=== PATIENT | male | born 1950 | race Caucasian/White ===

== ENCOUNTER 2021-06-26 10:46 | Emergency (ER) | payer MEDICARE, OTHER ==
[~2021-06-26] VITALS: Ht 180.3 cm; Wt 64.4 kg
[~2021-06-26 10:46] MED LIST: TAMS.4ER PO
[2021-06-26 12:05] LABS: BASOPHILS ABSOLUTE AUTO 0.04 K/mm3 (0.00-0.23); BASOPHILS PERCENT AUTO 0 % (0-2); EOSINOPHILS ABSOLUTE AUTO 0.08 K/mm3 (0.00-0.68); EOSINOPHILS PERCENT AUTO 1 % (0-6); Hematocrit 34.3 % (37.0-53.0); Hemoglobin 11.5 g/dL (13.5-17.5); IMMATURE GRAN ABSOLUTE AUTO 0.03 K/mm3 (0.00-0.10); IMMATURE GRAN PERCENT AUTO 0 % (0-1); LYMPHOCYTES ABSOLUTE AUTO 0.71 K/mm3 (0.84-5.20); LYMPHOCYTES PERCENT AUTO 8 % (21-46); MONOCYTES ABSOLUTE AUTO 0.71 K/mm3 (0.16-1.47); MONOCYTES PERCENT AUTO 8 % (4-13); Mean Corpuscular HGB 30.2 pg (26.0-34.0); Mean Corpuscular HGB Conc 33.5 g/dL (31.5-36.5); Mean Corpuscular Volume 90 fL (80-100); Mean Platelet Volume 8.5 fL (9.1-12.4); NEUTROPHILS PERCENT AUTO 84 % (41-73); Platelet Count 446 K/mm3 (150-400); RDW Coefficient Variation 14.3 % (11.7-14.2); RDW Standard Deviation 47.1 fL (35.1-46.3); Red Blood Cell Count 3.81 M/mm3 (4.30-5.90); White Blood Cell Count 9.47 K/mm3 (4.00-11.30)
[2021-06-26 12:27] LABS: Alanine Aminotransfer (ALT/SGP 25 U/L (12-78); Albumin/Globulin Ratio 0.9 (0.8-1.8); Alk Phos 55 U/L (50-136); Anion Gap 7 mmol/L (6-16); Aspartate Aminotrans (AST/SGOT 14 U/L (12-37); Bilirubin, Total 0.5 mg/dL (0.1-1.0); Blood Urea Nitrogen 17 mg/dL (8-24); CO2, Blood 26 mmol/L (21-32); Calcium, Blood 9.1 mg/dL (8.5-10.1); Chloride, Blood 105 mmol/L (98-108); Creatinine, Blood 0.85 mg/dL (0.60-1.20); Globulin, Blood 3.3 g/dL (2.2-4.0); Glomerular Filtration Rate >60 (60-); Glucose, Blood 109 mg/dL (70-99); Potassium, Blood 4.2 mmol/L (3.5-5.5); Sodium, Blood 138 mmol/L (136-145); Total Protein, Blood 6.3 g/dL (6.4-8.2); Troponin I <0.015 ng/mL (0.000-0.040)
[2021-06-26 12:28] LABS: Magnesium, Blood 1.8 mg/dL (1.6-2.4); Phosphorus, Blood 2.7 mg/dL (2.5-4.9)
== END 2021-06-26 15:05 | disposition home or self-care (01) ==
LOC: ER 10:46
PROVIDERS: Physician Assistant
DX: T83.011A Breakdown (mechanical) of indwelling urethral catheter, initial encounter (principal); I10 Essential (primary) hypertension; Z79.899 Other long term (current) drug therapy; Y83.8 Other surgical procedures as the cause of abnormal reaction of the patient, or of later complication, without mention of misadventure at the time of the procedure
CPT/HCPCS: 36415; 80053; 83690; 83735; 83880; 84100; 84484; 85025; 93005; 93010; 99283-25

== ENCOUNTER 2021-07-07 16:10 | Inpatient (IN) | payer MEDICARE, OTHER ==
[~2021-07-07] VITALS: Ht 180.3 cm; Wt 86.2 kg
[2021-07-07 17:54] LABS: BASOPHILS ABSOLUTE AUTO 0.08 K/mm3 (0.00-0.23); BASOPHILS PERCENT AUTO 0 % (0-2); EOSINOPHILS PERCENT AUTO 0 % (0-6); Hemoglobin 11.3 g/dL (13.5-17.5); IMMATURE GRAN ABSOLUTE AUTO 1.11 K/mm3 (0.00-0.10); IMMATURE GRAN PERCENT AUTO 4 % (0-1); LYMPHOCYTES PERCENT AUTO 1 % (21-46); MONOCYTES ABSOLUTE AUTO 0.69 K/mm3 (0.16-1.47); MONOCYTES PERCENT AUTO 2 % (4-13); Mean Corpuscular HGB 29.3 pg (26.0-34.0); Mean Corpuscular HGB Conc 35.3 g/dL (31.5-36.5); Mean Corpuscular Volume 83 fL (80-100); Mean Platelet Volume 11.1 fL (9.1-12.4); NEUTROPHILS ABSOLUTE AUTO 26.83 K/mm3 (1.96-9.15); NEUTROPHILS PERCENT AUTO 93 % (41-73); Platelet Count 119 K/mm3 (150-400); RDW Coefficient Variation 15.3 % (11.7-14.2); RDW Standard Deviation 46.5 fL (35.1-46.3); Red Blood Cell Count 3.86 M/mm3 (4.30-5.90); White Blood Cell Count 28.91 K/mm3 (4.00-11.30)
[2021-07-07 18:43] LABS: Alanine Aminotransfer (ALT/SGP 21 U/L (12-78); Albumin, Blood 2.1 g/dL (3.4-5.0); Albumin/Globulin Ratio 0.6 (0.8-1.8); Alk Phos 129 U/L (50-136); Anion Gap 24 mmol/L (6-16); Aspartate Aminotrans (AST/SGOT 7 U/L (12-37); Bilirubin, Total 0.8 mg/dL (0.1-1.0); Blood Urea Nitrogen 291 mg/dL (8-24); Bun/Creatinine Ratio 25.8 (12.0-20.0); CO2, Blood 9 mmol/L (21-32); Calcium, Blood 8.8 mg/dL (8.5-10.1); Chloride, Blood 92 mmol/L (98-108); Ethanol (Alcohol), Blood, Med <3 mg/dL; Globulin, Blood 3.6 g/dL (2.2-4.0); Glomerular Filtration Rate 5 (60-); Glucose, Blood 136 mg/dL (70-99); Potassium, Blood 5.7 mmol/L (3.5-5.5); Sodium, Blood 125 mmol/L (136-145); Total Protein, Blood 5.7 g/dL (6.4-8.2)
[2021-07-07 19:51] LABS: Source, Urine Condom Cath
[2021-07-07 19:58] LABS: Bilirubin, Urine Neg (Neg); Blood, Urine 5+ (Neg); Glucose Qualitative, Urine Neg (Neg); Ketones, Urine Neg (Neg); Leukocyte Esterase, Urine 3+ (Neg); Nitrite, Urine Neg (Neg); Protein, Urine 2+ (Neg); Urobilinogen, Urine NORM (Normal)
[2021-07-07 20:03] LABS: Appearance, Urine Hazy (Clear); Color, Urine Yellow (P-Yellow)
[2021-07-07 20:04] LABS: Bacteria Many /hpf; Red Blood Cells, Urine TNTC /hpf (0-2); Squamous Epithelial Cells Rare /hpf (Few); White Blood Cells, Urine TNTC /hpf (0-5)
[2021-07-07 20:28] LABS: U Amphetamine Screen Not Detected; U Barbituate Screen Not Detected; U Benzodiazapine Screen Not Detected; U Buprenorphine Screen Not Detected; U Cannabinoids Screen Not Detected; U Cocaine Screen Not Detected; U Methadone Screen Not Detected; U Methamphetamine Screen Not Detected; U Opiates Screen Not Detected; U Oxycodone Screen Not Detected; U Phencyclidine Screen Not Detected; U Propoxyphene Screen Not Detected
[2021-07-07 21:00] LABS: Influenza A, PCR NEGATIVE (NEGATIVE); Influenza B, PCR NEGATIVE (NEGATIVE); Resp Syncytial Virus, PCR NEGATIVE (NEGATIVE); SARS-Cov-2 (COVID-19) PCR, MMC NEGATIVE (NEGATIVE)
[2021-07-07 22:53] LABS: Base Excess Venous -19.5 mmol/L; Bicarbonate Venous 11.4 mmol/L (24.0-30.0); PCO2 Venous 22.3 mmHg (38-42); PO2 Venous 183 mmHg (38-42)
[2021-07-07 23:31] LABS: Albumin, Blood 1.9 g/dL (3.4-5.0); Anion Gap 26 mmol/L (6-16); Blood Urea Nitrogen 297 mg/dL (8-24); CO2, Blood 10 mmol/L (21-32); Calcium, Blood 8.5 mg/dL (8.5-10.1); Chloride, Blood 94 mmol/L (98-108); Glomerular Filtration Rate 5 (60-); Glucose, Blood 113 mg/dL (70-99); Phosphorus, Blood 10.2 mg/dL (2.5-4.9); Potassium, Blood 5.2 mmol/L (3.5-5.5); Sodium, Blood 130 mmol/L (136-145)
--- NOTE | 2021-07-08 02:12 | NUR ---
PT ARRIVED ON THE UNIT VIA HOSPITAL BED FROM ED AOX1-2 WITH INCREASED CONFUSION. PT BP WAS LOW AND 500ML BOLUS GIVEN ONCE PT WAS SETTLED IN BED. PT ORIENTED TO ROOM AND CALL LIGHT USE FOR ASSISTANCE. PT WAS NOT ABLE TO ANSWER MOST OF THE ASSESSMENT FOR THEIR ADMISSION BUT COOPERATIVE WITH CARE. PT C/O BEING COLD AND WARM BLANKET, FRESH WATER AND ROOM TEMP INCREASED HELPED THE PT GET SETTLED MORE. PT DENIES ANY OTHER NEEDS AT THE MOMENT WILL CONTINUE TO MONITOR.
--- NOTE | 2021-07-08 04:30 | NUR ---
SHIFT SUMMMARY PT AOX2 AND VERY CONFUSED WITH CHILLS BUT ABLE TO WARM UP TO REST. PT CURRENTLY ASLEEP WITH RISE AND FALL OF CHEST WITH NO S/S OF DISTRESS. PT STATED, "I HAVE BEEN HERE BEFORE AND HOPE THAT MY MEDICATION IS NOT MESSED UP WITH ME NOT BE HOME." PT ASSURED MEDICATIONS WILL BE FIGURED OUT TODAY, WILL CONTINUE TO MONITOR UNTIL REPORT IS GIVEN.
[2021-07-08 04:57] LABS: BASOPHILS ABSOLUTE AUTO 0.06 K/mm3 (0.00-0.23); BASOPHILS PERCENT AUTO 0 % (0-2); EOSINOPHILS PERCENT AUTO 0 % (0-6); Hematocrit 32.9 % (37.0-53.0); Hemoglobin 11.7 g/dL (13.5-17.5); IMMATURE GRAN ABSOLUTE AUTO 0.51 K/mm3 (0.00-0.10); IMMATURE GRAN PERCENT AUTO 2 % (0-1); LYMPHOCYTES ABSOLUTE AUTO 0.23 K/mm3 (0.84-5.20); LYMPHOCYTES PERCENT AUTO 1 % (21-46); MONOCYTES ABSOLUTE AUTO 0.63 K/mm3 (0.16-1.47); MONOCYTES PERCENT AUTO 3 % (4-13); Mean Corpuscular HGB 29.3 pg (26.0-34.0); Mean Corpuscular HGB Conc 35.6 g/dL (31.5-36.5); Mean Corpuscular Volume 83 fL (80-100); NEUTROPHILS ABSOLUTE AUTO 23.84 K/mm3 (1.96-9.15); NEUTROPHILS PERCENT AUTO 94 % (41-73); Platelet Count 138 K/mm3 (150-400); RDW Coefficient Variation 15.2 % (11.7-14.2); RDW Standard Deviation 45.9 fL (35.1-46.3); Red Blood Cell Count 3.99 M/mm3 (4.30-5.90); White Blood Cell Count 25.27 K/mm3 (4.00-11.30)
[2021-07-08 05:46] LABS: Magnesium, Blood 3.1 mg/dL (1.6-2.4)
[2021-07-08 06:11] LABS: Albumin, Blood 1.9 g/dL (3.4-5.0); Albumin/Globulin Ratio 0.6 (0.8-1.8); Bilirubin, Total 0.6 mg/dL (0.1-1.0); Calcium, Blood 8.6 mg/dL (8.5-10.1); Globulin, Blood 3.4 g/dL (2.2-4.0); Phosphorus, Blood 9.8 mg/dL (2.5-4.9); Potassium, Blood 5.1 mmol/L (3.5-5.5); Total Protein, Blood 5.3 g/dL (6.4-8.2)
[2021-07-08 06:13] LABS: Bun/Creatinine Ratio 27.7 (12.0-20.0)
[2021-07-08 06:15] LABS: Creatinine, Blood 10.1 mg/dL (0.60-1.20)
[2021-07-08 14:56] LABS: Bun/Creatinine Ratio 31.1 (12.0-20.0); Calcium, Blood 8.4 mg/dL (8.5-10.1); Creatinine, Blood 8.72 mg/dL (0.60-1.20); Potassium, Blood 4.8 mmol/L (3.5-5.5)
--- NOTE | 2021-07-08 15:32 | NUR ---
SHIFT SUMMARY PT AWAKE AT START OF SHIFT. PT IS A&O, BUT ALSO RAMBLES ON ABOUT NON-RELATING HOME SITUATIONS. PT NOT WANTING FAMILY TO COME AND VISIT. SISTER CALLED TO CK ON PT THIS AM AND LATER BROUGHT DAD TO VISIT WELL, BUT PT DID NOT WANT TO SEE THEM OR TALK TO THEM TODAY. PT UP TO CHAIR AT BS FOR LUNCH, BUT WANTING TO GET BACK INTO BED RIGHT AWAY. MAURICIO TO GRAVITY, DRAINING CL YELLOW TODAY. PER REPORT, SOME CLOTS PRESENT ON ADMIT. PER DR MOORE, MAURICIO CATH CHANGED OUT IN ER WHEN PT CAME IN. RENAL CONSULT CALLED TO DR MCCULLOUGH; NEW ORDERS PLACED. LAB CALLED WITH 2 SETS OF + BCX'S. DR CURTIS COVERING FOR DR RUFFIN WHEN NOTIFIED OF LAB RESULT. NEW ORDERS PLACED. PT RESTING QUIETLY AT THIS TIME. CALL LT IN REACH.
[2021-07-09 05:07] LABS: Hematocrit 30.5 % (37.0-53.0); Hemoglobin 11.2 g/dL (13.5-17.5)
--- NOTE | 2021-07-09 05:12 | NUR ---
SHIFT SUMMARY PT AOX1-2 AT TIMES AND WAS ASLEEP AT THE START OF THIS SHIFT. PT WAS AWAKE PRIOR TO HS MEDS AND RESQUESTED MORE SODA FOR MEDS. PT WAS CONFUSED ABOUT MAURICIO AND PULLED TO HARD CAUSING BLOOD TO COVER THE SHEETS. PT CLEANED AND MAURICIO PLACEMENT CHECKED. THIS NURSE EDUCATED THE PT ON SAFETY WITH CAREFUL TREATMENT OF THE MAURICIO CATH. PT VERBALIZED AND RESTED WITH RISE AND FALL OF CHEST. PT STILL ASLEEP WITHOUT DISTRESS, WILL CONTINUE TO MONITOR UNTIL REPORT IS GIVEN.
[2021-07-09 06:41] LABS: Magnesium, Blood 2.4 mg/dL (1.6-2.4)
[2021-07-09 06:43] LABS: Albumin, Blood 1.6 g/dL (3.4-5.0); Anion Gap 20 mmol/L (6-16); Blood Urea Nitrogen 228 mg/dL (8-24); CO2, Blood 18 mmol/L (21-32); Calcium, Blood 7.7 mg/dL (8.5-10.1); Chloride, Blood 98 mmol/L (98-108); Creatinine, Blood 6.33 mg/dL (0.60-1.20); Glomerular Filtration Rate 9 (60-); Glucose, Blood 156 mg/dL (70-99); Potassium, Blood 3.5 mmol/L (3.5-5.5); Sodium, Blood 136 mmol/L (136-145)
[2021-07-09 07:49] LABS: Phosphorus, Blood 6.6 mg/dL (2.5-4.9)
--- NOTE | 2021-07-09 19:16 | NUR ---
SHIFT SUMMARY PATIENT A&O 1-2. PATIENT UP TO CHAIR FOR MEALS. PATIENT COMPLAINED OF FEELING WEAK AND TIRED WHEN UP IN CHAIR. PATIENT HAS MAURICIO CATHETER PATENT AND DRAINING. PATIENT'S DAD CAME TO VISIT TODAY. AT FIRST PATIENT DID NOT WANT FATHER TO COME UP BUT THEN CHANGED HIS MIND AND AGREED TO HAVE DAD COME VISIT. PATIENT CONFUSED AT TIMES AND WOULD BEGIN RAMBLING ON OFF TOPIC. USES CALL LIGHT APPROPRIATELY. BED ALARM ON WITH BED IN LOW POSITION. WILL CONTINUE TO MONITOR.
--- NOTE | 2021-07-10 04:27 | NUR ---
SHIFT SUMMARY PTIS AAOX2, FORGETFUL AT TIMES. PT IS PLEASANT AND COOPERATIVE WITH CARE. MAURICIO REMAINS PATENT AND DRAINING URINE.VSS REVIEWED. ALL MEDS WER GIVEN PER EMAR. NO COMPLAINT OF PAIN OR SOB. PT IS RESTING COMFORTABLY AT THIS TIME. BED IN LOWER POSITION AND CALL LIGHT IN REACH. WIIL CONTINUE TO MONITOR UNTIL GIVING REPORT TO ONCOMING NURSE.
[2021-07-10 05:19] LABS: BASOPHILS ABSOLUTE AUTO 0.02 K/mm3 (0.00-0.23); BASOPHILS PERCENT AUTO 0 % (0-2); EOSINOPHILS ABSOLUTE AUTO 0.01 K/mm3 (0.00-0.68); EOSINOPHILS PERCENT AUTO 0 % (0-6); Hemoglobin 10.7 g/dL (13.5-17.5); IMMATURE GRAN ABSOLUTE AUTO 0.22 K/mm3 (0.00-0.10); IMMATURE GRAN PERCENT AUTO 2 % (0-1); LYMPHOCYTES PERCENT AUTO 3 % (21-46); MONOCYTES ABSOLUTE AUTO 0.75 K/mm3 (0.16-1.47); MONOCYTES PERCENT AUTO 5 % (4-13); Mean Corpuscular HGB 29.5 pg (26.0-34.0); Mean Corpuscular HGB Conc 35.7 g/dL (31.5-36.5); Mean Corpuscular Volume 83 fL (80-100); Mean Platelet Volume 11.6 fL (9.1-12.4); NEUTROPHILS PERCENT AUTO 90 % (41-73); Platelet Count 186 K/mm3 (150-400); RDW Coefficient Variation 14.4 % (11.7-14.2); RDW Standard Deviation 42.7 fL (35.1-46.3); Red Blood Cell Count 3.63 M/mm3 (4.30-5.90)
[2021-07-10 06:11] LABS: Albumin, Blood 1.7 g/dL (3.4-5.0); Anion Gap 16 mmol/L (6-16); CO2, Blood 27 mmol/L (21-32); Calcium, Blood 7.4 mg/dL (8.5-10.1); Chloride, Blood 96 mmol/L (98-108); Creatinine, Blood 4.18 mg/dL (0.60-1.20); Glomerular Filtration Rate 14 (60-); Glucose, Blood 158 mg/dL (70-99); Magnesium, Blood 1.7 mg/dL (1.6-2.4); Phosphorus, Blood 5.1 mg/dL (2.5-4.9); Potassium, Blood 3.5 mmol/L (3.5-5.5); Sodium, Blood 139 mmol/L (136-145)
[2021-07-10 06:46] LABS: Blood Urea Nitrogen 188 mg/dL (8-24)
--- NOTE | 2021-07-10 18:06 | NUR ---
SHIFT SUMMARY PATIENT A&O BUT RAMBLES ON ABOUT NON-RELATING TOPICS. PATIENT HAS A POOR APPETITE AND IS COMPLAINING OF CONSTIPATION. MEDICATED PER MAR BUT NO BM. MAURICIO CATHETER TO GRAVITY, DRAINING CLEAR YELLOW URINE. PATIENT GETS UP TO CHAIR AND BSC 2PA. WILL CONTINUE TO MONITOR.
[2021-07-11 04:31] LABS: BASOPHILS ABSOLUTE AUTO 0.02 K/mm3 (0.00-0.23); BASOPHILS PERCENT AUTO 0 % (0-2); EOSINOPHILS ABSOLUTE AUTO 0.03 K/mm3 (0.00-0.68); EOSINOPHILS PERCENT AUTO 0 % (0-6); Hematocrit 30.2 % (37.0-53.0); Hemoglobin 10.4 g/dL (13.5-17.5); IMMATURE GRAN PERCENT AUTO 1 % (0-1); LYMPHOCYTES ABSOLUTE AUTO 0.45 K/mm3 (0.84-5.20); LYMPHOCYTES PERCENT AUTO 4 % (21-46); MONOCYTES PERCENT AUTO 7 % (4-13); Mean Corpuscular HGB 29.4 pg (26.0-34.0); Mean Corpuscular HGB Conc 34.4 g/dL (31.5-36.5); Mean Corpuscular Volume 85 fL (80-100); Mean Platelet Volume 10.9 fL (9.1-12.4); NEUTROPHILS ABSOLUTE AUTO 11.26 K/mm3 (1.96-9.15); NEUTROPHILS PERCENT AUTO 88 % (41-73); Platelet Count 259 K/mm3 (150-400); RDW Coefficient Variation 14.7 % (11.7-14.2); RDW Standard Deviation 46.2 fL (35.1-46.3); Red Blood Cell Count 3.54 M/mm3 (4.30-5.90); White Blood Cell Count 12.76 K/mm3 (4.00-11.30)
--- NOTE | 2021-07-11 04:34 | NUR ---
SHIFT SUMMARY NO ACUTE CHANGES TO PT CONDITION AT THIS TIME. NS CONTINUES TO INFUSE AT 75/HR. PT MILDLY CONFUSED WHEN AWAKE, RESTING MUCH OF THE NIGHT. MAURICIO PATENT AND CONTINUES TO DRAIN YELLOW URINE. CALL LIGHT IS WITHIN PT REACH AND WILL CONTINUE TO MONITOR.
--- NOTE | 2021-07-11 04:41 | NUR ---
PT SINUS RHYTHM 78 PER SEPTEMBER STRETCHER HELPER
[2021-07-11 05:29] LABS: Albumin, Blood 1.7 g/dL (3.4-5.0); Anion Gap 7 mmol/L (6-16); Blood Urea Nitrogen 123 mg/dL (8-24); Bun/Creatinine Ratio 45.6 (12.0-20.0); CO2, Blood 32 mmol/L (21-32); Calcium, Blood 7.3 mg/dL (8.5-10.1); Chloride, Blood 104 mmol/L (98-108); Glomerular Filtration Rate 23 (60-); Glucose, Blood 130 mg/dL (70-99); Magnesium, Blood 1.6 mg/dL (1.6-2.4); Phosphorus, Blood 3.9 mg/dL (2.5-4.9); Potassium, Blood 3.4 mmol/L (3.5-5.5); Sodium, Blood 143 mmol/L (136-145)
--- NOTE | 2021-07-11 18:47 | NUR ---
PT PLEASANT TODAY. DID SOME RHYMES WITH ME TODAY. NO NEW COMPLAINTS NOTED. CONTINUES TO BE ON IVF AND WITH MAURICIO. STATES SOME IMPROVEMENT SEEN. CONTINUE FOR A WHILE LONGER. BED IN LOW POSITION, CALLLITE IN REACH, CALLS APPROP
--- NOTE | 2021-07-12 03:53 | NUR ---
CIGAR HEAD PIERCER SUMMARY HAS BEEN RESTING QUIETLY WITH OCCASIOINAL INTERRUPTION REQUESTING PO FLUIDS AND "ICE CREAM". MAURICIO DRAINING, NOTE LARGE AMTS OF INTAKE AND OUT PUT. MSDE ATTEMPT TO HAVE STAFF ASSIST WITH BEDSIDE COMMODE BUT STOPPED BEFORE GETTING OUT OF BED DUE TO VERTIGO. BEDPAN ENCOURAGED FOR SAFETY. CALL LIGHT IN REACH.
[2021-07-12 05:03] LABS: Hematocrit 29.8 % (37.0-53.0); Hemoglobin 9.8 g/dL (13.5-17.5)
[2021-07-12 06:00] LABS: Albumin, Blood 1.7 g/dL (3.4-5.0); Anion Gap 7 mmol/L (6-16); Blood Urea Nitrogen 70 mg/dL (8-24); Bun/Creatinine Ratio 39.3 (12.0-20.0); CO2, Blood 30 mmol/L (21-32); Chloride, Blood 104 mmol/L (98-108); Creatinine, Blood 1.78 mg/dL (0.60-1.20); Glomerular Filtration Rate 38 (60-); Glucose, Blood 118 mg/dL (70-99); Magnesium, Blood 1.3 mg/dL (1.6-2.4); Phosphorus, Blood 2.2 mg/dL (2.5-4.9); Potassium, Blood 3.7 mmol/L (3.5-5.5); Sodium, Blood 141 mmol/L (136-145)
[2021-07-12 07:31] LABS: Osmolality, Serum 314 mos/KG (275-300)
--- NOTE | 2021-07-12 16:58 | NUR ---
SHIFT SUMMARY PT A&O X3 AND IN PLEASENT MOOD, THOUGH DID HAVE PERIODS OF FORGETFULNESS. TALKS TO SELF @ TIMES. TOLERATING PO INTAKE WELL, DENIES N/V. MAURICIO DRAINING TO GRAVITY LIGHT YELLOW URINE. URINE OSMOLALITY 240 PER LAB VIA UA. PT EXERSIZED WHILE LAYING IN BED T/O SHIFT. VISITOR @ BEDSIDE DURING VISITING HOURS. VSS. CALL LIGHT W/IN REACH.
--- NOTE | 2021-07-12 18:59 | NUR ---
DR MCCULLOUGH CALL PT I&O DISCUSSED W/ -- REQUESTED STAT LABS, IN PROGRESS @ THIS TIME. UA COLLECTED FROM MAURICIO CATH TUBE W/ CLAMP AND HAND DELIVERED TO LAB. NS LOWERED TO 50ML/HR.
[2021-07-12 19:00] LABS: Magnesium, Blood 1.7 mg/dL (1.6-2.4)
[2021-07-12 19:22] LABS: Albumin, Blood 1.6 g/dL (3.4-5.0); Anion Gap 6 mmol/L (6-16); Blood Urea Nitrogen 50 mg/dL (8-24); Bun/Creatinine Ratio 34.7 (12.0-20.0); CO2, Blood 29 mmol/L (21-32); Calcium, Blood 7.2 mg/dL (8.5-10.1); Chloride, Blood 104 mmol/L (98-108); Creatinine, Blood 1.44 mg/dL (0.60-1.20); Glomerular Filtration Rate 48 (60-); Glucose, Blood 171 mg/dL (70-99); Phosphorus, Blood 1.8 mg/dL (2.5-4.9); Potassium, Blood 3.6 mmol/L (3.5-5.5); Sodium, Blood 139 mmol/L (136-145)
--- NOTE | 2021-07-12 22:47 | NUR ---
DR MCCULLOUGH CALLED EARLIER, REVIEWED RECENT BLOOD WORK/CHEMISTRY. ORDERED ONE DOSE O SODIUM PHOS 20 MM IV X 1. ORDERS REVIEWED BY PHARMACY
--- NOTE | 2021-07-13 04:48 | NUR ---
GREIGE GOODS MARKER SUMMARY HAS BEEN RESTING QUIETLY WITH FEW INTERRUPTIONS SINCE HS. IVF INFUSING ORDERED. ORDERED A BAG OF NA PHOS AND IT IS INFUSING. MAURICIO DRAINING IVAN. TOLERATING PO FLUIDS. CALL LIGHT IN REACH. NO C/O VOICED. WILL CONTINUE TO MONITOR
[2021-07-13 05:27] LABS: BASOPHILS ABSOLUTE AUTO 0.03 K/mm3 (0.00-0.23); BASOPHILS PERCENT AUTO 0 % (0-2); EOSINOPHILS ABSOLUTE AUTO 0.12 K/mm3 (0.00-0.68); EOSINOPHILS PERCENT AUTO 1 % (0-6); Hematocrit 27.7 % (37.0-53.0); Hemoglobin 9.1 g/dL (13.5-17.5); IMMATURE GRAN ABSOLUTE AUTO 0.07 K/mm3 (0.00-0.10); IMMATURE GRAN PERCENT AUTO 1 % (0-1); LYMPHOCYTES ABSOLUTE AUTO 0.62 K/mm3 (0.84-5.20); LYMPHOCYTES PERCENT AUTO 4 % (21-46); MONOCYTES ABSOLUTE AUTO 0.77 K/mm3 (0.16-1.47); MONOCYTES PERCENT AUTO 5 % (4-13); Mean Corpuscular HGB 29.7 pg (26.0-34.0); Mean Corpuscular HGB Conc 32.9 g/dL (31.5-36.5); Mean Platelet Volume 10.6 fL (9.1-12.4); NEUTROPHILS ABSOLUTE AUTO 13.14 K/mm3 (1.96-9.15); NEUTROPHILS PERCENT AUTO 89 % (41-73); Platelet Count 309 K/mm3 (150-400); RDW Coefficient Variation 15.1 % (11.7-14.2); RDW Standard Deviation 50.3 fL (35.1-46.3); Red Blood Cell Count 3.06 M/mm3 (4.30-5.90); White Blood Cell Count 14.75 K/mm3 (4.00-11.30)
[2021-07-13 05:28] LABS: Mean Corpuscular Volume 91 fL (80-100)
[2021-07-13 06:03] LABS: Albumin, Blood 1.5 g/dL (3.4-5.0); Anion Gap 6 mmol/L (6-16); Blood Urea Nitrogen 39 mg/dL (8-24); Bun/Creatinine Ratio 31.5 (12.0-20.0); CO2, Blood 27 mmol/L (21-32); Calcium, Blood 6.8 mg/dL (8.5-10.1); Chloride, Blood 107 mmol/L (98-108); Creatinine, Blood 1.24 mg/dL (0.60-1.20); Glomerular Filtration Rate 58 (60-); Glucose, Blood 117 mg/dL (70-99); Magnesium, Blood 1.6 mg/dL (1.6-2.4); Phosphorus, Blood 3.4 mg/dL (2.5-4.9); Potassium, Blood 4.3 mmol/L (3.5-5.5); Sodium, Blood 140 mmol/L (136-145)
--- NOTE | 2021-07-13 17:58 | NUR ---
AO X4 AND COOPERATIVE OF CARE. PT CAN SOUND CONFUSED AT TIMES. BUT ANSWERS QUESTIONS APPROPRIATELY. PT HAS BEEN IN BED AND HAD EMESIS START OF SHIFT. PT WAS TREATED PER EMAR AND THIS WAS EFFECTIVE. PT DENIES PAIN AND HAS CALL LIGHT WITHIN REACH. HANG IS WORKIING WELL.
[2021-07-13 21:50] LABS: Albumin, Blood 1.3 g/dL (3.4-5.0); Anion Gap 7 mmol/L (6-16); Blood Urea Nitrogen 34 mg/dL (8-24); Bun/Creatinine Ratio 28.1 (12.0-20.0); CO2, Blood 27 mmol/L (21-32); Calcium, Blood 6.9 mg/dL (8.5-10.1); Chloride, Blood 104 mmol/L (98-108); Creatinine, Blood 1.21 mg/dL (0.60-1.20); Glomerular Filtration Rate 59 (60-); Glucose, Blood 111 mg/dL (70-99); Magnesium, Blood 1.4 mg/dL (1.6-2.4); Phosphorus, Blood 1.8 mg/dL (2.5-4.9); Potassium, Blood 4.3 mmol/L (3.5-5.5); Sodium, Blood 138 mmol/L (136-145)
[2021-07-14 04:51] LABS: Hematocrit 26.5 % (37.0-53.0); Hemoglobin 8.7 g/dL (13.5-17.5)
--- NOTE | 2021-07-14 05:21 | NUR ---
SHIFT SUMMARY A/OX3, FORGETFUL AT TIMES. GRANDIOSE THOUGHTS. MAURICIO PATENT AND DRAINING CLEAR YELLOW URINE. Q1HR OUTPUT RECORDED. NS RUNNING AT 50. BED IN LOWEST POSITION WITH CALL LIGHT IN REACH. WILL CONTINUE TO MONITOR AND REPORT TO ONCOMING RN.
[2021-07-14 06:00] LABS: Albumin, Blood 1.3 g/dL (3.4-5.0); Anion Gap 8 mmol/L (6-16); Blood Urea Nitrogen 29 mg/dL (8-24); Bun/Creatinine Ratio 25.9 (12.0-20.0); CO2, Blood 25 mmol/L (21-32); Calcium, Blood 6.9 mg/dL (8.5-10.1); Chloride, Blood 104 mmol/L (98-108); Creatinine, Blood 1.12 mg/dL (0.60-1.20); Glomerular Filtration Rate >60 (60-); Glucose, Blood 171 mg/dL (70-99); Magnesium, Blood 1.7 mg/dL (1.6-2.4); Phosphorus, Blood 3.6 mg/dL (2.5-4.9); Potassium, Blood 4.1 mmol/L (3.5-5.5); Sodium, Blood 137 mmol/L (136-145)
--- NOTE | 2021-07-14 17:06 | NUR ---
SHIFT SUMMARY PT A&O X4 T/O SHIFT. SBAX1 TO BSC W/ FWW. MRI TODAY AWAITING PENDING RESULTS. TOLERATING PO INTAKE WELL. URINE Q1H CHECK COMPLETE, PLACED IN PT CHART. PT PERFORMING LEG EXERCISES IN BED, C/O PAIN, MEDICATED PER EMAR. VSS. CALL LIGHT W/IN REACH. TELE IN PLACE. BED ALARM ACTIVE.
--- NOTE | 2021-07-15 04:42 | NUR ---
VARNISHING MACHINE OPERATOR SUMMARY PATIENT HAD A FAIR SHIFT. ASSESSMENT WAS DONE AND CHARTED. HIS V/S WERE STABLE. IVF DC'S BY DR. MCCULLOUGH. HIS IV ACCIDENTANLLY PULLED OUT ANAD WAS REPLACED BY THE MOBILE ELECTRONICS INSTALLER. HE DID NOT LODGE ANY FURTHER COMPLAINTS. WILL CONTINUE TO MONITOR HIM.
[2021-07-15 04:46] LABS: Hemoglobin 8.7 g/dL (13.5-17.5)
[2021-07-15 05:07] LABS: Albumin, Blood 1.6 g/dL (3.4-5.0); Anion Gap 5 mmol/L (6-16); Blood Urea Nitrogen 25 mg/dL (8-24); Bun/Creatinine Ratio 25.2 (12.0-20.0); CO2, Blood 26 mmol/L (21-32); Calcium, Blood 7.5 mg/dL (8.5-10.1); Chloride, Blood 106 mmol/L (98-108); Creatinine, Blood 0.99 mg/dL (0.60-1.20); Glomerular Filtration Rate >60 (60-); Glucose, Blood 147 mg/dL (70-99); Magnesium, Blood 1.7 mg/dL (1.6-2.4); Potassium, Blood 3.8 mmol/L (3.5-5.5); Sodium, Blood 137 mmol/L (136-145)
--- NOTE | 2021-07-15 11:50 | NUR ---
Received referral from nurse sub acute care nurse (Luke Lobato) on 07/15/2021. Patient is to discharge 07/15/2021 with orders for home health and elected [facility]. Patient was admitted to [facility] on 07/07/2021 due to acute metabolic encephalopathy. Discussed with patient information on demographic sheet. Patient states he does not have a PCP despite there being a listed PCP on his face sheet. Informed patient of the need to establish care with a PCP who can then make a referral for home health. Patient verbalized understanding. Contacted [facility]) regarding the above. Per office patient has not established care. Discussed with clinic that he will need to establish care and PCP will need to order home health for patient. Clinic verbalized understanding and states that they will reach out to patient later today. Notified bedside RN (Elba Bartlett) and nurse sub acute care nurse of the above. No further interventions Emma Lemus Referral Liaison
[2021-07-15] MEDS ORDERED: DESMOPRESS10 MCG/0.2 (12:05)
[2021-07-15] MEDS ORDERED: VISBIOME 112.51 EACH PO (12:06)
[2021-07-15] MEDS ORDERED: LEVO750 PO (12:08)
[2021-07-15] MEDS ORDERED: MAGNESIUM OXID500 MG PO (12:08)
[2021-07-15] MEDS ORDERED: K-Phos Origina500 MG PO (12:10)
--- NOTE | 2021-07-15 14:25 | NUR ---
DISCHARGE PT A&O X4. PT PROVIDED W/ VERBAL AND WRITTEN INFORMATION. VERBALIZED UNDERSTANDING. PT [facility]SP[facility]. PT IV REMOVED. PT TELE DCED. VSS. LEFT VIA .
== END 2021-07-15 15:05 | disposition home health service (06) | DRG 698 ==
LOC: ER 16:10 → MEDS 22:55
PROVIDERS: Emergency Medicine; Family Medicine; Internal Medicine Nephrology; ADMIT Internal Medicine
DX: T83.511A Infection and inflammatory reaction due to indwelling urethral catheter, initial encounter (principal); G93.41 Metabolic encephalopathy; R65.20 Severe sepsis without septic shock; A41.51 Sepsis due to Escherichia coli [E. coli]; E87.1 Hypo-osmolality and hyponatremia; N17.9 Acute kidney failure, unspecified; E87.2 Acidosis; N25.81 Secondary hyperparathyroidism of renal origin; N39.0 Urinary tract infection, site not specified; K59.00 Constipation, unspecified; Z79.899 Other long term (current) drug therapy; Z20.822 Contact with and (suspected) exposure to COVID-19; Z98.890 Other specified postprocedural states; E87.5 Hyperkalemia; E83.39 Other disorders of phosphorus metabolism; Z53.29 Procedure and treatment not carried out because of patient's decision for other reasons
CPT/HCPCS: 0241U; 36415; 51702; 70551; 74176; 80048; 80053; 80069; 81001; 82803; 83605; 83735; 83930; 83935; 84100; 84520; 84588; 85014; 85018; 85025; 87040; 87077; 87086; 87186; 93005; 93010; 94760; 96365-59; 99285-25; A9270; G0480; J0696; J1644; J1650; J1956; J2597; J3475; J3480; J7030; J7040; J7060; J7070

== ENCOUNTER 2021-08-18 16:34 | Emergency (ER) | payer MEDICARE, OTHER ==
[~2021-08-18] VITALS: Ht 180.3 cm; Wt 70.3 kg
[~2021-08-18 16:34] MED LIST changes: +DESMOPRESS10 MCG/0.2; +K-Phos Origina500 MG PO; +LEVO750 PO; +MAGNESIUM OXID500 MG PO; +VISBIOME 112.51 EACH PO
[2021-08-18 18:08] LABS: Source, Urine Clean Catch
[2021-08-18 18:10] LABS: Bilirubin, Urine Neg (Neg); Blood, Urine 2+ (Neg); Glucose Qualitative, Urine Neg (Neg); Ketones, Urine Neg (Neg); Leukocyte Esterase, Urine 1+ (Neg); Nitrite, Urine Neg (Neg); Protein, Urine 2+ (Neg); Urobilinogen, Urine NORM (Normal)
[2021-08-18 18:22] LABS: Appearance, Urine Hazy (Clear); Color, Urine Pale Yellow (P-Yellow)
[2021-08-18 18:25] LABS: Amorphous Light (0-Heavy); Bacteria Few /hpf; Squamous Epithelial Cells Few /hpf (Few)
[2021-08-18] MEDS ORDERED: Flomax0.4 MG PO (18:53)
== END 2021-08-18 19:18 | disposition home or self-care (01) ==
LOC: ER 16:34
PROVIDERS: Physician Assistant
DX: R33.9 Retention of urine, unspecified (principal); N40.0 Benign prostatic hyperplasia without lower urinary tract symptoms; E11.9 Type 2 diabetes mellitus without complications; Z85.46 Personal history of malignant neoplasm of prostate; Z79.899 Other long term (current) drug therapy
CPT/HCPCS: 51701; 81001; 87077; 87086; 87186; 99283-25

== ENCOUNTER → 2022-03-15 | Outpatient (CLI) | payer MEDICARE, OTHER ==
[~2022-03-15] MED LIST changes: +CEFD300 PO; +Flomax0.4 MG PO; +PHENA200 PO
[2022-03-15 21:30] LABS: Albumin, Blood 3.3 g/dL (3.4-5.0); Anion Gap 8 mmol/L (6-16); Blood Urea Nitrogen 58 mg/dL (8-24); Bun/Creatinine Ratio 14.9 (12.0-20.0); CO2, Blood 22 mmol/L (21-32); Calcium, Blood 9.5 mg/dL (8.5-10.1); Chloride, Blood 103 mmol/L (98-108); Glomerular Filtration Rate 16 (60-); Glucose, Blood 96 mg/dL (70-99); Potassium, Blood 5.7 mmol/L (3.5-5.5); Sodium, Blood 133 mmol/L (136-145)
== END ==
LOC: LAB SHORT 15:02
PROVIDERS: Internal Medicine Nephrology
DX: N18.5 Chronic kidney disease, stage 5 (principal); D63.1 Anemia in chronic kidney disease; R76.9 Abnormal immunological finding in serum, unspecified; R94.5 Abnormal results of liver function studies; G60.9 Hereditary and idiopathic neuropathy, unspecified
CPT/HCPCS: 80069; 85018

== ENCOUNTER 2022-03-22 09:54 | Inpatient (IN) | payer MEDICARE, OTHER ==
[~2022-03-22] VITALS: Ht 180.3 cm; Wt 73.2 kg
[2022-03-22 10:15] LABS: Calcium, Ionized (POC) 1.24 mmol/L (1.10-1.46); Chloride (POC) 100 mmol/L (98-108); Creatinine (POC) 4.6 mg/dL (0.8-1.3); Glucose (ISTAT POC) 137 mg/dL (70-99); Hemoglobin (POC) 12.2 g/dL (13.5-17.5); Potassium (POC) 4.8 mmol/L (3.5-5.5); Sodium (POC) 132 mmol/L (135-148); Total CO2 (POC) 20 mmol/L (21-32)
[2022-03-22 10:30] LABS: BASOPHILS ABSOLUTE AUTO 0.05 K/mm3 (0.00-0.23); BASOPHILS PERCENT AUTO 1 % (0-2); EOSINOPHILS PERCENT AUTO 1 % (0-6); Hematocrit 34.6 % (37.0-53.0); Hemoglobin 10.7 g/dL (13.5-17.5); IMMATURE GRAN ABSOLUTE AUTO 0.01 K/mm3 (0.00-0.10); IMMATURE GRAN PERCENT AUTO 0 % (0-1); LYMPHOCYTES ABSOLUTE AUTO 1.32 K/mm3 (0.84-5.20); LYMPHOCYTES PERCENT AUTO 17 % (21-46); MONOCYTES ABSOLUTE AUTO 0.82 K/mm3 (0.16-1.47); MONOCYTES PERCENT AUTO 10 % (4-13); Mean Corpuscular HGB 25.7 pg (26.0-34.0); Mean Corpuscular HGB Conc 30.9 g/dL (31.5-36.5); Mean Corpuscular Volume 83 fL (80-100); Mean Platelet Volume 8.7 fL (9.1-12.4); NEUTROPHILS PERCENT AUTO 71 % (41-73); Platelet Count 529 K/mm3 (150-400); RDW Coefficient Variation 15.7 % (11.7-14.2); RDW Standard Deviation 47.2 fL (35.1-46.3); Red Blood Cell Count 4.16 M/mm3 (4.30-5.90)
[2022-03-22 10:31] LABS: PCO2 Venous 32.3 mmHg (38-42); pH Blood Venous 7.42 (7.34-7.37)
[2022-03-22 10:32] LABS: Base Excess Venous -3.6 mmol/L
[2022-03-22 10:48] LABS: Albumin/Globulin Ratio 0.6 (0.8-1.8); Bilirubin, Direct 0.1 mg/dL (0.0-0.3); Bilirubin, Indirect 0.3 mg/dL (0.1-0.7); Bilirubin, Total 0.4 mg/dL (0.1-1.0); Bun/Creatinine Ratio 15.5 (12.0-20.0); Calcium, Blood 10.1 mg/dL (8.5-10.1); Creatinine, Blood 4.53 mg/dL (0.60-1.20); Globulin, Blood 4.7 g/dL (2.2-4.0); Magnesium, Blood 1.9 mg/dL (1.6-2.4); Potassium, Blood 4.7 mmol/L (3.5-5.5); Total Protein, Blood 7.7 g/dL (6.4-8.2)
[2022-03-22 10:53] LABS: Source, Urine Clean Catch
[2022-03-22] MEDS ORDERED: TADALAFIL5 M1 PO (10:55)
[2022-03-22] MEDS ORDERED: SODCHL1 PO (10:56)
[2022-03-22 11:00] LABS: Bilirubin, Urine Neg (Neg); Blood, Urine 3+ (Neg); Glucose Qualitative, Urine Neg (Neg); Ketones, Urine Neg (Neg); Leukocyte Esterase, Urine 3+ (Neg); Nitrite, Urine Neg (Neg); Protein, Urine 2+ (Neg); Specific Gravity, Urine 1.005 (1.003-1.022); Urobilinogen, Urine NORM (Normal); pH, Urine 6.5 (5.0-8.0)
[2022-03-22 11:05] LABS: Appearance, Urine Hazy (Clear); Color, Urine Pale Yellow (P-Yellow)
[2022-03-22 11:07] LABS: White Blood Cells, Urine TNTC /hpf (0-5)
[2022-03-22 11:08] LABS: Bacteria Mod /hpf; Squamous Epithelial Cells Rare /hpf (Few)
[2022-03-22 11:11] LABS: U Amphetamine Screen Not Detected; U Barbituate Screen Not Detected; U Benzodiazapine Screen Not Detected; U Buprenorphine Screen Not Detected; U Cannabinoids Screen DETECTED; U Cocaine Screen Not Detected; U Methadone Screen Not Detected; U Methamphetamine Screen Not Detected; U Opiates Screen Not Detected; U Oxycodone Screen Not Detected; U Phencyclidine Screen Not Detected; U Propoxyphene Screen Not Detected
[2022-03-22 11:41] LABS: Influenza A, PCR NEGATIVE (NEGATIVE); Influenza B, PCR NEGATIVE (NEGATIVE); Resp Syncytial Virus, PCR NEGATIVE (NEGATIVE); SARS-Cov-2 (COVID-19) PCR, MMC NEGATIVE (NEGATIVE)
[2022-03-22] MEDS ORDERED: LOKELMA10 GM PO (14:47)
--- NOTE | 2022-03-22 18:25 | NUR ---
SHIFT SUMMARY PT TO THE FLOOR AT 1450 FROM THE ER. PT AMBULATING SBA WITHOUT DIFFICULTY. MAURICIO IN PLACE AND DRAINING ORANGE/RED URINE WITH SOME CLOTS. HE IS REPORTING PAIN TO THE PENIS AND BLADDER AREA POST CATHETERIZATION - NO RELIEF WITH TYLENOL. PT IS ALERT AND ORIENTED X4 BUT HAS SOME TANGENTIAL AND PRESSURED SPEECH AND SOME DIFFICULTY FOLLOWING DIRECTIONS. HE DENIES WEAKNESS, NAUSEA, OR DIZZINESS NOW. HE HAS BEEN SINUS ON THE TELE MONITOR. SATTING >92% ON RA. IV NS INFUSING. NO ACUTE CONCERNS AT THIS TIME. NO CHEST PAIN.
[2022-03-23 05:02] LABS: BASOPHILS ABSOLUTE AUTO 0.03 K/mm3 (0.00-0.23); BASOPHILS PERCENT AUTO 0 % (0-2); EOSINOPHILS ABSOLUTE AUTO 0.04 K/mm3 (0.00-0.68); EOSINOPHILS PERCENT AUTO 0 % (0-6); Hematocrit 34.9 % (37.0-53.0); Hemoglobin 11.2 g/dL (13.5-17.5); IMMATURE GRAN ABSOLUTE AUTO 0.02 K/mm3 (0.00-0.10); IMMATURE GRAN PERCENT AUTO 0 % (0-1); LYMPHOCYTES PERCENT AUTO 10 % (21-46); MONOCYTES ABSOLUTE AUTO 0.78 K/mm3 (0.16-1.47); MONOCYTES PERCENT AUTO 8 % (4-13); Mean Corpuscular HGB 26.5 pg (26.0-34.0); Mean Corpuscular HGB Conc 32.1 g/dL (31.5-36.5); Mean Corpuscular Volume 83 fL (80-100); Mean Platelet Volume 8.6 fL (9.1-12.4); NEUTROPHILS ABSOLUTE AUTO 7.76 K/mm3 (1.96-9.15); NEUTROPHILS PERCENT AUTO 81 % (41-73); Platelet Count 462 K/mm3 (150-400); RDW Coefficient Variation 15.7 % (11.7-14.2); RDW Standard Deviation 47.1 fL (35.1-46.3); Red Blood Cell Count 4.23 M/mm3 (4.30-5.90); White Blood Cell Count 9.63 K/mm3 (4.00-11.30)
[2022-03-23 05:17] LABS: Albumin, Blood 2.6 g/dL (3.4-5.0); Anion Gap 8 mmol/L (6-16); Blood Urea Nitrogen 71 mg/dL (8-24); Bun/Creatinine Ratio 15.3 (12.0-20.0); CO2, Blood 23 mmol/L (21-32); Calcium, Blood 9.5 mg/dL (8.5-10.1); Chloride, Blood 105 mmol/L (98-108); Creatinine, Blood 4.63 mg/dL (0.60-1.20); Glomerular Filtration Rate 13 (60-); Glucose, Blood 106 mg/dL (70-99); Magnesium, Blood 2.4 mg/dL (1.6-2.4); Phosphorus, Blood 4.1 mg/dL (2.5-4.9); Potassium, Blood 4.6 mmol/L (3.5-5.5); Sodium, Blood 136 mmol/L (136-145)
--- NOTE | 2022-03-23 05:20 | NUR ---
Assumed care of pt at 1900. A/Ox4, anxious and talkative. Reports bladder spasm pain related to the catheter. Rechecked placement of catheter and statlock, gave medication and applied Kpad for comfort. Patient reports relief and was able to sleep for a few hours. Maintains over 95% on RA. LS clear on top and dim at bases. SR on tele 90's, denies any CP/pressure, BP stable. Strong +2 pulses t/o. Reports constipation, hypoactive bowel tones x4, PO medications. Temp joseph draining to gravity red urine with clots that towards the end of shift shifted to light suhail urine. Slight splitting noted at urethral opening, cath care done. Small scabbing noted t/o. Will report to dayshift RN.
--- NOTE | 2022-03-23 09:54 | NUR ---
ASSUMPTION OF CARE THIS RN ASSUMED CARE OF PATIENT AT 0700. REPORT TAKEN FROM ELVIS ROSENBERG. PATIENT'S VITALS STABLE AT THIS TIME. BLADDER SPASM PAIN NOTED; MEDICATING PER EMAR. THIS RN OFFERED TO CHANGE OUT TEMP MAURICIO FOR COUDE TO ENSURE PROPER PLACEMENT BUT PATIENT REFUSED AT THIS TIME. RED URINE WITH SEDIMENT/CLOTS NOTED. NS RUNNING AT 75MLS/HR. PATIENT INDEPENDENT TO BSC. CALLS APPROPRIATELY. BED IN LOWEST POSITION AND CALL LIGHT WITHIN REACH.
--- NOTE | 2022-03-23 17:52 | NUR ---
SHIFT SUMMARY PATIENT ALERT AND ORIENTED X4. PATIENT IS TALKATIVE AND TANGENTIAL. PATIENT CONTINUES TO HAVE BLADDER SPASM PAIN REGULARLY DURING THIS SHIFT. PATIENT STATES IT IS 4-5/10 ALL THE TIME AND WHEN THE SPASM IS SEVERE IT IS 10/10 PAIN. MEDICATING PER EMAR. THIS RN CHANGED TEMP MAURICIO TO 16FR COUDE. BRIEF RELIEF FELT BY PRN 50 MCG IV FENTANYL. PATIENT USING HEAT AND POSITIONAL INTERVENTIONS FOR PAIN. PATINET COMPLAINS OF CONSTIPATION; MEDICATING PER EMAR WITH NO RESULTS YET THIS SHIFT; PATIENT STATES "IT'S CLOSE". PATIENT INDEPENDENT TO BSC. CALLS APPROPRIATELY. BED IN LOWEST POSITION AND CALL LIGHT WITHIN REACH. WILL CONTINUE TO MONITOR UNTIL SHIFT CHANGE AT 1900.
--- NOTE | 2022-03-24 05:58 | NUR ---
Patient slept for a few hours at a time. A/Ox4. Still c/o bladder spasm pain of 10/10 intensity. Kpad and medications per emar allowed pt to sleep. Santos draining to gravity bloody urine with clots. Order for intermittent cath irrigation obtained, after irrigating, much more urine came out. Patient managed to have small BM this shift. VSS. No acute changes. Will report to dayshift RN.
[2022-03-24 06:23] LABS: Hemoglobin 10.5 g/dL (13.5-17.5)
[2022-03-24 06:45] LABS: Albumin, Blood 2.6 g/dL (3.4-5.0); Anion Gap 10 mmol/L (6-16); Blood Urea Nitrogen 64 mg/dL (8-24); Bun/Creatinine Ratio 14.1 (12.0-20.0); CO2, Blood 20 mmol/L (21-32); Chloride, Blood 108 mmol/L (98-108); Creatinine, Blood 4.53 mg/dL (0.60-1.20); Glomerular Filtration Rate 13 (60-); Glucose, Blood 99 mg/dL (70-99); Magnesium, Blood 2.1 mg/dL (1.6-2.4); Phosphorus, Blood 3.6 mg/dL (2.5-4.9); Potassium, Blood 4.6 mmol/L (3.5-5.5); Sodium, Blood 138 mmol/L (136-145)
[2022-03-24 15:29] LABS: Bun/Creatinine Ratio 13.9 (12.0-20.0); Calcium, Blood 9.1 mg/dL (8.5-10.1); Creatinine, Blood 4.54 mg/dL (0.60-1.20); Potassium, Blood 4.7 mmol/L (3.5-5.5)
--- NOTE | 2022-03-24 17:58 | NUR ---
SHIFT SUMMARY PATIENT CONTINUES TO HAVE TANGENTIAL SPEECH WITH NOTED FORGETFULNESS, BUT ANSWERS QUESTIONS APPROPRIATELY. INCREASED CLOTS NOTED IN CATHETER; URINE CONTINUES TO BE BRIGHT RED IN COLOR WITH TISSUE/CLOTS. PATIENT NEEDING TO HAVE CATHETER IRRIGATED WITH STERILE WATER Q3-4HRS DURING THIS SHIFT BY THIS RN DUE TO CLOGGING CATHETER AND LEAKING. PATIENT CONTINUES TO HAVE SPASMS BUT STATES THAT THEY HAVE DECREASED TODAY. WHEN THE SPASMS OCCUR THE PT STATES THEY ARE 10/10. PATIENT CONTINUES TO BE INEPENDENT TO BSC. SHOWER GIVEN TO PATIENT THIS AM. CALLING APPROPRIATELY. NS RUNNING AT 150MLS/HR. BED IN LOWEST POSITION AND CALL LIGHT WITHIN REACH.
[2022-03-25 04:14] LABS: Hemoglobin 9.7 g/dL (13.5-17.5)
[2022-03-25 04:45] LABS: Albumin, Blood 2.3 g/dL (3.4-5.0); Anion Gap 8 mmol/L (6-16); Blood Urea Nitrogen 59 mg/dL (8-24); Bun/Creatinine Ratio 13.3 (12.0-20.0); CO2, Blood 20 mmol/L (21-32); Calcium, Blood 8.2 mg/dL (8.5-10.1); Chloride, Blood 108 mmol/L (98-108); Creatinine, Blood 4.44 mg/dL (0.60-1.20); Glomerular Filtration Rate 13 (60-); Glucose, Blood 93 mg/dL (70-99); Phosphorus, Blood 3.3 mg/dL (2.5-4.9); Potassium, Blood 4.4 mmol/L (3.5-5.5); Sodium, Blood 136 mmol/L (136-145)
--- NOTE | 2022-03-25 05:27 | NUR ---
SHIFT SUMMARY NO ACUTE CHANGES THIS SHIFT. PT ALERT, VSS. C/O OF BLADDER SPASMS X1, MEDICATED W/ TYLENOL FOR PAIN W/ SUCCESSFUL RELIEF. MAURICIO CATHETER DRAINING RED URINE W/ SMALL CLOTS TO GRAVITY. NO IRRIGATION NEEDED THIS SHIFT. SMALL PELLET LIKE BM THIS SHIFT. FLUIDS INFUSED PER EMAR. PT STATED HE GOT SUCH GOOD SLEEP AFTER MIDNIGHT. CALL LIGHT IN REACH.
--- NOTE | 2022-03-25 17:11 | NUR ---
TRANSFER OF CARE NOTE PT HAS BEEN INDEPENDENT IN HIS ROOM, USING THE BEDSIDE COMMODE. HE HAS COMPLAINED OF 7/10 PAIN IN HIS BLADDER. HIS CATHETER IS STILL DRAINING BRIGHT RED URINE. HAS BEEN IRRIGATED TODAY PER MD ORDER. PTS CONSTIPATION HAS BEEN RELIEVED AND HE HAS A LARGE SOFT BM THIS AFTERNOON. BED IN LOWEST POSITION AND CALL LIGHT IN REACH
--- NOTE | 2022-03-26 04:13 | NUR ---
SHIFT SUMMARY 72 YR M ADMITTED ON 03/22/22 FOR LUIS/UTI. FULL CODE. PT C/O PAIN AT A LEVEL OF 7-10/10. HE SAT ON THE BSC FOR A GOOD PORTION OF THE SHIFT AND STATED THAT HE WAS MOST COMFORTABLE THERE. MAURICIO IS STILL DRAINING RED BLOOD AND THERE WERE A FEW SMALL BLOOD CLOTS. HE WOULD LIKE TO TALK TO DOC IN THE A.M. CONCERNING HIS MEDS FOR BLADDER SPASMS. HE STATES THAT HE WAS TOLD THE DOSE WOULD CHANGE FROM 3XD TO 4XD AND IT DID NOT.
[2022-03-26 05:25] LABS: Hematocrit 31.9 % (37.0-53.0); Hemoglobin 9.7 g/dL (13.5-17.5)
[2022-03-26 05:53] LABS: Albumin, Blood 2.2 g/dL (3.4-5.0); Anion Gap 8 mmol/L (6-16); Blood Urea Nitrogen 52 mg/dL (8-24); CO2, Blood 19 mmol/L (21-32); Chloride, Blood 103 mmol/L (98-108); Creatinine, Blood 4.72 mg/dL (0.60-1.20); Glomerular Filtration Rate 13 (60-); Glucose, Blood 95 mg/dL (70-99); Magnesium, Blood 1.7 mg/dL (1.6-2.4); Phosphorus, Blood 3.3 mg/dL (2.5-4.9); Potassium, Blood 4.4 mmol/L (3.5-5.5); Sodium, Blood 130 mmol/L (136-145)
[2022-03-26 09:21] LABS: Source, Urine Foley catheter
[2022-03-26 09:34] LABS: Bilirubin, Urine Neg (Neg); Blood, Urine 5+ (Neg); Glucose Qualitative, Urine Neg (Neg); Ketones, Urine Neg (Neg); Leukocyte Esterase, Urine 3+ (Neg); Nitrite, Urine Neg (Neg); Protein, Urine 3+ (Neg); Urobilinogen, Urine NORM (Normal); pH, Urine 6.5 (5.0-8.0)
[2022-03-26 09:42] LABS: Appearance, Urine Hazy (Clear); Bacteria Rare /hpf; Color, Urine Red (P-Yellow); Red Blood Cells, Urine TNTC /hpf (0-2); Squamous Epithelial Cells Not Seen /hpf (Few)
--- NOTE | 2022-03-26 18:20 | NUR ---
SHIFT SUMMARY: PERSISTENT HEMATURIA WITH SOME CLOTS, DID NOT NEED TO IRRIGATE CATHETER AT ALL TODAY. HAVING BLADDER SPASMS; BENTYL CHANGED FROM TID TO QID. NO EVENTS ON TELE, SR 70'S. GAVE SUPPOSITORY TO PROMOTE BM, HAD GOOD EFFECT. INDEPENDENT IN ROOM. PT'S FATHER VISITED TODAY, TOLD THIS AUTHOR THAT PATIENT WOULD NEED TO BE INDEPENDENT WITH HIS CARE HE AND HIS ARE IN THEIR LATE 80'S/EARLY 90'S AND CANNOT TAKE CARE OF HIM. PT INQUIRED ABOUT ASSISTED LIVING TO THIS AUTHOR, ACKNOWLEDGED THAT HE NEEDS MORE HELP THAN HIS PARENTS CAN GIVE.
--- NOTE | 2022-03-26 20:33 | NUR ---
ASSUMED CARE. AOX3, MILD FORGETFULNESS AT TIMES. FOLLOWS DIRECTIONS. KNEES WERE BENT TO CHEST WHEN ENTERING THE ROOM, GRUNNTING EVERY NOW AND THEN. STATES THE SPASMS HURT. MAURICIO WITH LITTLE URINE IN IT. BED SOAKED IN URINE, PATIENT C/O BEING COLD AND WET. MAURICIO TWISTED IN STAT LOCK PREVENTING FLOW. WHEN RELEASED, LARGE AMOUNT OF URINE FLOODED OUT, CAUSING SEVERE SPASMS AND HIM YELLOWING SOME. GOT SPASMS UNDER CONTROL, OUTPUT WAS OVER 500 OF RED TINGED URINE, SEVERAL SMALL BLOOD CLOTS FLOWED OUT. PATIENT GIVEN PARTIAL BATH, LINEN CHANGE COMPLETED. BICARB INFUSING. MEDICATED WITH PM MEDS. NEW STAT LOCK PLACED. DISCUSSED WITH PATIENT TO MONITOR MAURICIO TO MAKE SURE IT IS FLOWING ALL THE TIME. WILL MONITOR, CALL LIGHT IN REACH.
--- NOTE | 2022-03-26 22:00 | NUR ---
PT UP TO BSC, STATES HE WAS FEELING LIKE HE WAS CRAMPING, STATES SOMETIMES IF HE HAS A BM IT HELPS RELEIVE THE SPASMS. MAURICIO STILL PATENT AND DRIAING RED TINGE URINE, CONT. TO HAVE BLOOD CLOTS SMALL. MEDICATED WITH TYLENOL FOR PAIN. NO BM NOTED YET.
[2022-03-27 04:53] LABS: Hematocrit 31.9 % (37.0-53.0)
[2022-03-27 05:11] LABS: Anion Gap 9 mmol/L (6-16); Blood Urea Nitrogen 51 mg/dL (8-24); Bun/Creatinine Ratio 10.9 (12.0-20.0); CO2, Blood 20 mmol/L (21-32); Calcium, Blood 7.7 mg/dL (8.5-10.1); Chloride, Blood 98 mmol/L (98-108); Creatinine, Blood 4.67 mg/dL (0.60-1.20); Glomerular Filtration Rate 13 (60-); Glucose, Blood 93 mg/dL (70-99); Magnesium, Blood 1.7 mg/dL (1.6-2.4); Phosphorus, Blood 3.2 mg/dL (2.5-4.9); Potassium, Blood 4.3 mmol/L (3.5-5.5); Sodium, Blood 127 mmol/L (136-145)
--- NOTE | 2022-03-27 05:44 | NUR ---
SHIFT SUMMARY: AOX3, FORGETFUL AT TIMES, ABLE TO MAKE NEEDS KNOWN. MAURICIO WITH RED TINGED URINE, OUTPUT 1825. TOTAL INTAKE WAS 2671. URINE CONTINUES TO HAVE SMALL BLOOD CLOTS THAT DO PASS VIA CATH. NO IRRIGATON WAS INDICATED TONIGHT. PT CONTINUES TO HAVE BLADDER SPASMS OFF AND ON. FENT GIVEN X1 AND TYELNOL GIVEN X2. KIDNEY FUNCTION UNCHANGED EXCEPT DROP IN NA+ TO 127 [address] CA TO 7.7. DR. MCCULLOUGH NOTIFIED, STAT IONIZED CA ORDERED. WILL CALL WITH RESULTS. ABLE TO GET UP TO BSC INDEPENDENTLY. CALL LIGHT REMAINS IN REACH.
--- NOTE | 2022-03-27 06:14 | NUR ---
IONIZED CA RESULTS CALLED TO DR. MCCULLOUGH. ORDER FOR CALCIUM GLUCONATE ORDERED.
--- NOTE | 2022-03-27 08:00 | NUR ---
pt laying in bed awake a/ox3, pleasant and cooperative with care, follows commands well, denies pain, states he feels pretty good today, in good spirits, lungs are clear t/o, resp even and unlabored, no cough noted, hrr, tele in place running sr per monitor, see strip, no edema noted, ppp+1, cap refill <3sec, vs stable, afebrile, iv sites are clear and patent, btx4, abd flat soft nontender, voids via joseph cath draining watermelon colored urine, skin c/w/d, skin c/w/d, norma, indep in room, can make his needs known, call light in reach.
--- NOTE | 2022-03-27 19:19 | NUR ---
pt has been up indep in room, having pain in bladder area, medicated with fentanyl once, no further changes this shift. call light in reach.
[2022-03-28 04:50] LABS: BASOPHILS ABSOLUTE AUTO 0.06 K/mm3 (0.00-0.23); BASOPHILS PERCENT AUTO 1 % (0-2); EOSINOPHILS ABSOLUTE AUTO 0.28 K/mm3 (0.00-0.68); EOSINOPHILS PERCENT AUTO 5 % (0-6); Hematocrit 32.9 % (37.0-53.0); Hemoglobin 10.4 g/dL (13.5-17.5); IMMATURE GRAN ABSOLUTE AUTO 0.02 K/mm3 (0.00-0.10); IMMATURE GRAN PERCENT AUTO 0 % (0-1); LYMPHOCYTES ABSOLUTE AUTO 1.09 K/mm3 (0.84-5.20); LYMPHOCYTES PERCENT AUTO 20 % (21-46); MONOCYTES ABSOLUTE AUTO 0.69 K/mm3 (0.16-1.47); MONOCYTES PERCENT AUTO 13 % (4-13); Mean Corpuscular HGB 25.6 pg (26.0-34.0); Mean Corpuscular HGB Conc 31.6 g/dL (31.5-36.5); Mean Corpuscular Volume 81 fL (80-100); Mean Platelet Volume 8.6 fL (9.1-12.4); NEUTROPHILS ABSOLUTE AUTO 3.28 K/mm3 (1.96-9.15); NEUTROPHILS PERCENT AUTO 61 % (41-73); Platelet Count 495 K/mm3 (150-400); RDW Coefficient Variation 15.4 % (11.7-14.2); RDW Standard Deviation 44.7 fL (35.1-46.3); Red Blood Cell Count 4.07 M/mm3 (4.30-5.90); White Blood Cell Count 5.42 K/mm3 (4.00-11.30)
[2022-03-28 05:07] LABS: Albumin, Blood 2.1 g/dL (3.4-5.0); Anion Gap 9 mmol/L (6-16); Blood Urea Nitrogen 48 mg/dL (8-24); Bun/Creatinine Ratio 10.4 (12.0-20.0); CO2, Blood 24 mmol/L (21-32); Calcium, Blood 8.3 mg/dL (8.5-10.1); Chloride, Blood 90 mmol/L (98-108); Creatinine, Blood 4.62 mg/dL (0.60-1.20); Glomerular Filtration Rate 13 (60-); Glucose, Blood 90 mg/dL (70-99); Magnesium, Blood 1.7 mg/dL (1.6-2.4); Phosphorus, Blood 3.5 mg/dL (2.5-4.9); Potassium, Blood 4.1 mmol/L (3.5-5.5); Sodium, Blood 123 mmol/L (136-145)
--- NOTE | 2022-03-28 06:45 | NUR ---
NOC SHIFT SUMMARY PT ADMITTED WITH HEMATURIA AND BLADDER SPASMS. MAURICIO IN SITU DRAINING RED/PINK URINE WITH INTERMITTENT CLOTS. SPASMS DIFFICULT TO KEEP UNDER CONTROL, BENTYL ALONE INEFFECTIVE. ADDITION OF FENTANYL PROVIDED SLIGHT IMPROVMENT. BELLADONNA SUPPOSITORIES ADDED OVERNIGHT. COMBINATION OF ALL SEEM TO BE EFFECTIVE. PT HAPPY WITH ADJUSTMENTS TO MEDS. NO OTHER ISSUES OVERNIGHT.
--- NOTE | 2022-03-28 15:59 | NUR ---
IRRIGATED BLADDER PER ORDERS. PT TOLERATED WELL
--- NOTE | 2022-03-28 16:41 | NUR ---
NOTIFIED BY TELE PT APPEARED TO HAVE 15 BEAT RUN VTACH UPON TALKING TO PT, PT REPORTED SEVERE BLADDER PAIN, RATING 9/10 AND WAS BOUNCING LEGS VIGOROUSLY ON BED. MEDICATED PER ORDERS FOR PAIN W/FENTANYL. NOTIFIED DR ARREOLA.
--- NOTE | 2022-03-28 17:37 | NUR ---
PT TO CT. NOTIFIED TELE
--- NOTE | 2022-03-28 18:33 | NUR ---
SUMMARY PT STABLE. HAD AN EPISODE OF 15 BEAT RUN OF VTACH PER TELE. UPON ENTERING ROOM, FOUND PT BOUNCING LEGS VIGOROUSLY AND STATED HE WAS IN 9/10 BLADDER PAIN. MEDICATED PER ORDERS W/FENTANYL, WHICH BROUGHT PAIN DOWN TO 1/10. REPORTED TO DR ARREOLA. PT CONTINUES TO HAVE CRANBERRY COLORED URINE TO MAURICIO BAG. IRRIGATED THIS AFTERNOON PER ORDERS. PT PLEASANT AND COOPERATIVE. CALL LIGHT IN REACH.
[2022-03-29 05:18] LABS: Hematocrit 32.2 % (37.0-53.0); Hemoglobin 10.3 g/dL (13.5-17.5)
[2022-03-29 05:55] LABS: Albumin, Blood 2.1 g/dL (3.4-5.0); Anion Gap 10 mmol/L (6-16); Blood Urea Nitrogen 50 mg/dL (8-24); Bun/Creatinine Ratio 9.6 (12.0-20.0); CO2, Blood 23 mmol/L (21-32); Calcium, Blood 8.6 mg/dL (8.5-10.1); Chloride, Blood 93 mmol/L (98-108); Glomerular Filtration Rate 11 (60-); Glucose, Blood 102 mg/dL (70-99); Magnesium, Blood 1.7 mg/dL (1.6-2.4); Phosphorus, Blood 5.2 mg/dL (2.5-4.9); Potassium, Blood 4.6 mmol/L (3.5-5.5); Sodium, Blood 126 mmol/L (136-145); Uric Acid, Blood 7.8 mg/dL (3.5-7.2)
--- NOTE | 2022-03-29 06:47 | NUR ---
NOC SHIFT SUMMARY HEMATURIA CLEARING; LAST OUTPUT WAS LIGHT PINK AND CLEAR. HOWEVER, SEVERAL ISSUES AROSE THROUGHOUT THE SHIFT. THIS RN REQUESTED SEVERAL TIMES TO CALL FOR ASSISTANCE WHEN GETTING OOB AFTER WITNESSING 1ST HAND THE MANY SAFETY HAZARDS THAT WERE PREVELANT. THE TUBE CAUSED A TRIPPING JEWEL, WHICH THE PATIENT ATTEMPTED TO AVOID BY REPEATEDLY STEPPING BACK AND FORTH (WHICH MADE NO DIFFERENCE, MANY KINKS WERE CREATED). AT ONE POINT, THE PT'S MAURICIO STOPPED DRAINING, WHICH CORRELATED TO A SPIKE IN THE PT'S HR TO THE 140'S. A BLADDER SCAN SHOWED 570 mL. CHARGE NURSE VIRIDIANA VIGOROUSLY FLUSHED THE CATHETER UNTIL URINE BEGAN DRAINING. PAIN WAS ALSO AN ISSUE, BUT WAS EVENTUALLLY CONTROLLED. NO OTHER ISSUES NOTED OVERNIGHT.
[2022-03-29 07:26] LABS: Free Thyroxine 1.16 ng/dL (0.70-1.60); Triiodothyronine, Free 1.67 pg/mL (2.18-3.98)
--- NOTE | 2022-03-29 08:00 | NUR ---
pt laying in bed with heating pad to low abd, states he's having spasms intermintantly, pain gets up to a 10/10, a/ox3, pleasant and cooperative with care, follows commands well, lungs are clear t/o, resp even and unlabored, no cough noted, on r/a, resp even and unlabored, hrr, tele in place, running sr per monitor, see strip, no edema noted, ppp+1, cap refill <3sec, v.s. stable, afebrile, iv site is clear and patent, btx4, abd flat soft nontender, voids via joseph, clear pink urine, skin c/w/d, maew, bea, call light in reach.
[2022-03-29 11:22] LABS: Creatinine, Blood 5.41 mg/dL (0.60-1.20)
--- NOTE | 2022-03-29 18:35 | NUR ---
pt had iv's go bad and new one placed, did medicate him for pain as he is continuing to have bladder spasms, consult was called in for Dr. Stacy for perma cath placement, call light in reach.
--- NOTE | 2022-03-30 00:10 | NUR ---
PT WAS HAVING EXCRUTIATING BLADDER SPASMS THAT WERE REPORTED GETTING WORSE AND MORE FREQUENT AND UNRELIEVED BY PRN FENTANYL, TYLENOL, TRAMADOL AND SCHEDULED BENTYL. STAFF OBSERVED MAURICIO W/VERY LITTLE NEW URINARY OUTPUT. THIS RN ATTEMPTED TO FLUSH MAURICIO TO ENSURE PATENCY AND WAS UNABLE TO EXPEL FLUSH THAT WAS ADMINISTERED. NO CLOTS OR UO OBTAINED DESPITE REPOSITIONING MAURICIO CATH. PT SAT AT EOB AND WAS UP TO BSC D/T PAIN LESS WHEN SITTING UPRIGHT. NEITHER GRAVITY OR MOBILITY SEEMED TO AID REGAIN PATENCY. BLADDER SCAN SHOWED >400 MLS RETAINED W/MAURICIO IN PLASE THAT WAS NO LONGER DRAINING. MADE AWARE W/CONT CONT BLADDER IRRIGATION ORDERED PRN AND LIDOCAINE UROJET AND DILUADID IV X1 RX'D FOR NEW 3-WAY MAURICIO INSERTION IF NEEDED.
--- NOTE | 2022-03-30 01:08 | NUR ---
THIS RN WAS PLANNING TO PLACE 3 WAY MAURICIO CATHETER AND COMMENCE CONT BLADDER IRRIGATION PRN TO MAINTAIN PATENCY BUT WHEN STAFF DEFLATED BALLOON AND BEGAN PROCEDURE TO REMOVE EXISTING CATHETER, BRIGHT RED URINE BEGAN FLOWING AGAIN. PT HAD JUST ATTEMPTED TO USE BSC FOR BM AND HAD STRAINED SOME W/O ANY SUCCESS BUT PERHAPS THIS AIDED IN REGAINING PATENCY. STAFF ADVANCED CATH FURTHER AND REINFLATED BALLOON FOR LARGE AMT OF BLOODY URINARY OUTPUT. PREVIOUS ATTEMPTS AT THIS FELT IF CATHETER TIP WAS HITTING SOME SORT OF BLOCKAGE THAT NO LONGER COULD BE FELT. APPROXIMATELY 700+ MLS BLOODY URINE OUTPUT W/SEVERAL LARGE CLOTS OBSERVED FLOWING TO BAG. REPEAT BLADDER SCAN SHOWED ONLY 18-34 MLS. MAURICIO REMAINS PATENT AT THIS TIME AND SPASMS ARE MUCH IMPROVED. CATH REPLACEMENT IS NOT NEEDED AT PRESENT BUT ORDER REMAINS ACTIVE IF CATH IS NO LONGER PATENT ONCE AGAIN. WILL MONITOR CLOSELY AND MEDICATE FOR PAIN PRN.
--- NOTE | 2022-03-30 02:25 | NUR ---
MAURICIO REMAINS PATENT AND DRAINING BLOOD TINGED URINE W/OCCASIONAL CLOTS. URINE APPEARANCE IS LESS BLOODY AT PRESENT. PT SLEEPING W/O S/S DISTRESS OR CONTINUED BLADDER SPASMS.
--- NOTE | 2022-03-30 03:40 | NUR ---
SUMMARY: PT A/OX4, CALLS APPROPRIATELY TO SPECIFY NEEDS AND IS PLEASANT AND COOEPRATIVE W/CARE. HE BEGAN SHIFT PAINFUL W/BLADDER SPASMS THAT WORSENED DESPITE RECIEVING PRN TYLENOL, FENTANYL, TRAMADOL AND SCHEDULED BENTYL. MAURICIO WAS INITIALLY DRAINING BLOOD TINGED URINE BUT THEN WAS NOTED TO NO LONGER BE PATENT DESPITE MULTIPLE ATTEMPTS TO FLUSH MAURICIO, REPOSITION CATHETER AND HAVE PATIENT SIT UPRIGHT TO IMPROVE GRAVITY. ORDER WAS OBTAINED FOR PRN CONTINUOUS BLADDER IRRIGATION W/3 WAY MAURICIO INSERTION BUT WHEN RN WAS PREPARING TO PULL MAURICIO, IT FINALLY BECAME PATENT AGAIN. APPROX 700MLS DARK RED URINE W/CLOTS BEGAN DRAINING AGAIN UPON REESTABLISHING PATENCY AND PAIN/SPASMS IMPROVED. URINE APPEARANCE IS BETTER THIS AM BUT FLUCTUATES BETWEEN CLEAR YELLOW, PINK AND BLOOD TINGED OUPUT W/CLOTS. HE FELL ASLEEP FINALLY UPON RELIEF OF BLADDER PAIN AND HAS DENIED COMPLAINTS SINCE. CONSULT FOR PERMACATH PLACEMENT IS STILL PENDING BUT PT WAS MADE NPO AT [place] FOR POSSIBLE PROCEDURE. HE'S ON TELEMETRY IN NSR AT 70'S-80'S BPM W/O ECTOPY. NO ACUTE CHANGES, VSS AND AFEBRILE. WCTM AND REPORT TO DAY RN.
[2022-03-30 05:48] LABS: Hematocrit 30.7 % (37.0-53.0); Hemoglobin 9.8 g/dL (13.5-17.5)
[2022-03-30 05:59] LABS: Albumin, Blood 2.1 g/dL (3.4-5.0); Anion Gap 9 mmol/L (6-16); Blood Urea Nitrogen 55 mg/dL (8-24); Bun/Creatinine Ratio 9.3 (12.0-20.0); CO2, Blood 24 mmol/L (21-32); Calcium, Blood 8.5 mg/dL (8.5-10.1); Chloride, Blood 94 mmol/L (98-108); Creatinine, Blood 5.93 mg/dL (0.60-1.20); Glomerular Filtration Rate 10 (60-); Glucose, Blood 99 mg/dL (70-99); Magnesium, Blood 1.7 mg/dL (1.6-2.4); Phosphorus, Blood 5.9 mg/dL (2.5-4.9); Potassium, Blood 4.8 mmol/L (3.5-5.5); Sodium, Blood 127 mmol/L (136-145)
--- NOTE | 2022-03-30 11:39 | NUR ---
PT DISCHARGED WITH ALL PERSONAL BELONGINGS, ESCORTED OUT TO PERSONAL VEHICLE VIA WHEELCHAIR PROPELLED BY ADVERTISING COPY WRITER. ACCOMPANIED BY SPOUSE. DISCHARGE TEACHING COMPLETE, NO FURTHER QUESTIONS AT THIS TIME. IV REMOVED AT 1130. DISCHARGE MEDICATION RX FAXED TO [facility] IN [place]. CONFIRMATION FAX RECEIVED AND PLACED IN CHART.
--- NOTE | 2022-03-30 13:28 | NUR ---
RECEIVED VISIT FROM THERAPY DOG.
--- NOTE | 2022-03-30 13:34 | NUR ---
PLACED PHONE CALL TO DR. TERRY, COVERING FOR DR. ARREOLA. PT IS CONTINUING TO REPORT BLADDER SPASMS THIS MORNING, WHICH ARE NOT ADEQUATELY MANAGED BY FENTANYL, TRAMADOL OR BENTYL. DR. TERRY WITH ORDER FOR PRN ONE TIME ORDER OF BENTYL 20 MG IN ADDITION TO SCHEDULED QID.
--- NOTE | 2022-03-30 19:41 | NUR ---
PT RECEIVED PERMA-CATH FOR DIALYSIS IN RIGHT UPPER CHEST WALL. NO BLEEDING OR DRAINAGE FROM SITE. PT TOLERATED PO INTAKE AFTER PROCEDURE. MAURICIO DRAINING TO GRAVITY PINK TINGED URINE WITH SCANT CLOTS, FLOWING WELL, NO IRRIGATION COMPLETED. PT AMBULATED WITH SBA FROM WHEAT AND OATS FLAKE MILLER AROUND THE HALLWAYS. PT IS CONFUSED, AT TIMES SEARCHING FOR WORDS AND REPEATING QUESTIONS. PLEASANT AND COOPERATIVE WITH CARE.
--- NOTE | 2022-03-31 03:35 | NUR ---
SUMMARY: PT A/OX4 BUT IS MILDLY FORGETFULL AND HAS TROUBLE FINDING WORDS AT TIMES. HE'S PLEASANT AND COOPERATIVE W/CARE, SPECIFIES NEEDS AND IS UP TO BSC INDEPENDENTLY. PT MEDICATED FOR TOLERABLE RELIEF OF BLADDER SPASMS W/TRAMADOL X1 PRN. MAURICIO REMAINED PATENT AND DRAINING TO GRAVITY W/O NEED FOR IRRIGATION THIS SHIFT. URINE FLUCTUATES FROM YELLOW TO PINK TINGED W/CLOTS TO DARKER RED. DIALYSIS PENDING AND NEW PERMCATH WAS PLACED ON DAY SHIFT TO .. DX REMAINS C/D/I AND PT DENIES DISCOMFORT TO SITE. 1L FR MAINTAINED. NO ACUTE CHANGES, VSS/AFEBRILE. TELE IS NSR AT 70'S BPM. WCTM AND REPORT TO DAY RN.
--- NOTE | 2022-03-31 04:33 | NUR ---
SUMMARY: PT A/OX4, IS INDEPENDENT IN ROOM AND CALLS APPROPRIATELY TO SPECIFY NEEDS. HE SLEPT MAJORITY OF NOCTE AND AWOKE FOR CARE/MEDS. SCHEDULED TORADOL RECIEVED FOR TOLERABLE RELIEF OF LEG PAIN AND HE CONT'S TO REPORT QUADRICEPS FEELING TIGHT AND INFLAMED. PT DOES REPORT BETTER PAIN CONTROL THIS SHIFT AND HASN'T REQUIRED ANY ADDITIONAL PRN PAIN MEDS. NS CONT'S TO INFUSING AT 200 MLS/HR W/FREQUENT URINAL USE OBESERVED. HE ADMITS TO UNDERLYING ANXIETY R/T UNCERTAINTY OF DIAGNOSIS AND EXPRESSES DESIRE FOR GOOD NEWS BUT BECOMES DISCOURAGED BY WORSENING LABWORK. SUPPORT AND REASSURANCE PROVIDED AND PT CALMED EASILY. NO ACUTE CHANGES, VSS/AFEBRILE. WCTM AND REPORT TO DAY RN.
[2022-03-31 05:06] LABS: Hematocrit 29.2 % (37.0-53.0); Hemoglobin 9.3 g/dL (13.5-17.5)
[2022-03-31 05:28] LABS: Albumin, Blood 2.1 g/dL (3.4-5.0); Anion Gap 10 mmol/L (6-16); Blood Urea Nitrogen 62 mg/dL (8-24); Bun/Creatinine Ratio 9.9 (12.0-20.0); CO2, Blood 25 mmol/L (21-32); Calcium, Blood 8.7 mg/dL (8.5-10.1); Chloride, Blood 96 mmol/L (98-108); Creatinine, Blood 6.28 mg/dL (0.60-1.20); Glomerular Filtration Rate 9 (60-); Glucose, Blood 87 mg/dL (70-99); Magnesium, Blood 1.9 mg/dL (1.6-2.4); Phosphorus, Blood 6.5 mg/dL (2.5-4.9); Sodium, Blood 131 mmol/L (136-145)
--- NOTE | 2022-03-31 18:20 | NUR ---
SHIFT SUMMARY PT RECIEVED DIALYSIS TODAY. MAURICIO CATHETER IN PLACE AND PUTING OUT A LARGE AMOUNT OF URINE. URINE HAS CHANGED FROM RED TO PINK COLOR TO SOFT PINKISH YELLOW IN COLOR. PT C/O BLADDER SPASMS INTERMITTENLY. MEDICATED PER EMAR. OXYBUTIN STARTED TODAY PER EMAR. PT PLEASANT & COOPERATIVE IN ROOM. RESTING IN BED. CALL LIT IN REACH. DENIES OTHER NEEDS AT THIS TIME. VS REVIEWED.
[2022-04-01 05:34] LABS: Hematocrit 34.1 % (37.0-53.0); Hemoglobin 10.5 g/dL (13.5-17.5)
[2022-04-01 06:08] LABS: Albumin, Blood 2.4 g/dL (3.4-5.0); Anion Gap 8 mmol/L (6-16); Blood Urea Nitrogen 47 mg/dL (8-24); Bun/Creatinine Ratio 9.3 (12.0-20.0); CO2, Blood 31 mmol/L (21-32); Calcium, Blood 9.3 mg/dL (8.5-10.1); Chloride, Blood 100 mmol/L (98-108); Creatinine, Blood 5.05 mg/dL (0.60-1.20); Glomerular Filtration Rate 12 (60-); Glucose, Blood 97 mg/dL (70-99); Magnesium, Blood 2.1 mg/dL (1.6-2.4); Phosphorus, Blood 5.2 mg/dL (2.5-4.9); Potassium, Blood 4.4 mmol/L (3.5-5.5); Sodium, Blood 139 mmol/L (136-145)
--- NOTE | 2022-04-01 06:39 | NUR ---
NOC SHIFT SUMMARY PT MUCH MORE AT EASE SINCE THIS RN LAST HAD PT UNDER HER CARE. PT WAS VERBALIZING HIS FASCINATION WITH HEMODIALYSIS (PT'S 1ST SESSION WAS 03/31), AND THE PLEASENT CONVERSATION THAT HE HAD WITH HILARIA, THE HD RN. MAURICIO IRRIGATED AT START OF SHIFT WITH 50 CC'S; THIS CAUSED BRIEF SPASMS. OUTPUT IS NOW CLEAR, LIGHT YELLOW, AND AT TIMES, THE LIGHTEST OF PINK. THE PATIENT DOES NOT SEEM TO QUITE UNDERSTAND THE FLUID RESTRICTION, HE CONTINUED TO ASK FOR "REFILLS" WELL AFTER HIS LIMIT FOR THE 24HRS HAD BEEN MET. ADDITIONALLY, HIS UNDERSTANDING OF THE NEEDS AND BENEFITS OF HEMODIALYSIS SEEM OFF, PATIENT STATED, "I THOUGHT THAT I WAS GONNA STOP PEEING; THAT WAS MY UNDERSTANDING". "I WAS REALLY LOOKING FORWARD TO NOT HAVING TO STRAIGHT CATH MYSELF ANYMORE". PERHAPS MORE IN DETAIL EDUCATIONAL CONVERSATIONS WITH DIALYSIS NURSE IS WARRENTED.
[2022-04-01 09:29] LABS: HBSAG SCREEN Negative (Negative); HCV AB <0.1 (0.0-0.9); HEP A AB, IGM Negative (Negative); HEP B CORE AB, IGM Negative (Negative)
--- NOTE | 2022-04-01 15:05 | NUR ---
SHIFT SUMMARY PT AWAKE AT START OF SHIFT, WATCHING TV. NO C/O. VERY TALKATIVE. REPORTED BLADDER SPASM'S IMPROVED. LARGE AMT OF URINE OUTPUT TO PRESENT THIS SHIFT. DR ARREOLA IN TO SEE PT AND DISCUSS PLAN OF CARE. PT ON 1L FLUID RESTRICTION D/T SODIUM LEVEL. DR STEINBERG NOTIFIED LATER FOR PT CLAIRIFICATION ON FREE WATER RESTRICTIONS OR ALL FLUIDS. PT TO LIMIT ALL FLUIDS TO 1L. PT TAKEN DOWN FOR DIALYSIS AT NOON FOR DAY 2. RETURNED TO AFTER LUNCH; TOLERATED WELL. DENIED FURTHER NEEDS AT THIS TIME. WILL CONTINUE TO MONITOR. CALL LT IN REACH.
--- NOTE | 2022-04-01 18:46 | NUR ---
PT'S CATHETER WAS IRRIGATED TODAY, NO CLOTTING OR OBSTRUCTIONS NOTED.
--- NOTE | 2022-04-01 19:45 | NUR ---
AFTER INITIAL ENCOUNTER, THE PATIENT WAS FOUND TO BE SLEEPING SOUNDLY. THE PATIENT HAS BEEN HAVING DIFFICULTIES OBTAINING ADEQUATE SLEEP, THIS RN MADE THE DECISION TO RETURN AT A LATER TIME TO CONDUCT A THOROUGH EXAM. WHEN VISUALIZING THE PATIENT'S CATHETER BAG, IT APPEARED EMPTY. WHEN CONFERRING WITH JAMES BENITO CNA, THIS RN WAS INFORMED THAT OVER 2,000 CC HAD JUST BEEN EMPTIED, WHICH APPARNTLY WAS A CONTRADICTION TO WHAT WAS RELAYED TO HER DURING CHANGE OF SHIFT REPORT (SHE WAS TOLD THAT THE PT'S MAURICIO BAG HAD JUST BEEN EMPTIED PRIOR TO CARE HANDOFF). LORRAINE SANABRIA WAS K Y; SEVERAL OF MY PATIENTS WERE UNDER HER CARE TODAY, EACH HAVING SEPARATE SAFETY ISSUES (PLEASE SEE DOCUMENTATION FOR PTS IN ROOMS 54 AND 57 WELL THE ABOVE NARRATIVE.
[2022-04-02 05:10] LABS: Hematocrit 33.8 % (37.0-53.0); Hemoglobin 10.5 g/dL (13.5-17.5)
--- NOTE | 2022-04-02 05:26 | NUR ---
NOC SHIFT SUMMARY PT WAS VERY PLEASENT AND COOPERATIVE OVERNIGHT. AT THE START OF THE SHIFT, HE WAS SOUND ASLEEP D/T HIS 2ND SESSION OF DIALYSIS. CATHETER REMAINS IN SITU. AT ONE POINT, OUTPUT WAS BRIGHT RED W/SMALL CLOTS. 50 CC IRRIGATION FLUSH REMOVED A LARGER CLOT, AND IMMEDIATELY BEGAN TO IMPROVE THE COLOR OF THE OUTPUT TO LIGHT PINK. THE IRRIGATION DID CAUSE SOME MODERATE DISCOMFORT WHICH SUBSIDED SPONTANEOUSLY AFTER SEVERAL MINUTES. NO ISSUES NOTED.
[2022-04-02 05:31] LABS: Albumin, Blood 2.5 g/dL (3.4-5.0); Anion Gap 6 mmol/L (6-16); Blood Urea Nitrogen 32 mg/dL (8-24); Bun/Creatinine Ratio 8.2 (12.0-20.0); CO2, Blood 33 mmol/L (21-32); Calcium, Blood 8.9 mg/dL (8.5-10.1); Chloride, Blood 101 mmol/L (98-108); Creatinine, Blood 3.92 mg/dL (0.60-1.20); Glomerular Filtration Rate 16 (60-); Glucose, Blood 98 mg/dL (70-99); Phosphorus, Blood 2.6 mg/dL (2.5-4.9); Potassium, Blood 3.5 mmol/L (3.5-5.5); Sodium, Blood 140 mmol/L (136-145)
--- NOTE | 2022-04-02 15:45 | NUR ---
SHIFT SUMMARY PT AWAKE AT START OF SHIFT, WATCHING TV. PLEASANT AND CO-OP WITH CARE. DOES SPEND ALOT OF TIME TALKING ABOUT FLUID RESTRICTION AND WANTING MORE WATER. FREQUENTLY TALKS ABOUT HOW MUCH WATER HE WAS DRINKING AT HOME BEFORE COMING IN. NO DIALYSIS FOR PT TODAY. DR ARREOLA IN TO SEE PT THIS AM AND DISCUSSED PLAN OF CARE AND WAITING FOR DIALYSIS BED OPENING. WHOLESALE PARTS SALESPERSON STATED THIS AFTERNOON THAT OUTPT DIALYSIS BED IS NOW AVAILABLE ON TUESDAY OR TUESDAY. ARRANGEMENTS HAVE BEEN MADE. PT REPORTED BLADDER SPASMS IMPROVED FROM LAST NIGHT. NO C/O THIS AM. MAURICIO PATENT AND DRAINING LRG AMT OF CL YELLOW URINE. NO PINK TINGE SINCE EARLY THIS AM. UP INDEPENDENTLY IN AND TO [facility], [place] FOR BM. DENIES FURTHER NEEDS AT THIS TIME. CALL LT IN REACH.
--- NOTE | 2022-04-03 04:13 | NUR ---
DISASTER RECOVERY ANALYST SUMMARY NO ACUTE CHANGES. PT PLEASANT AND COOPERATIVE WITH CARE. CONT W/1000MLS FLUID RESTRICTION. PT DENIED BLADDER PAIN/SPASAMS. MAURICIO PATENT AND DRAINING TO GRAVITY. CLEAR YELLOW W/SCANT PINK; WILL CONT TO MONITOR. CALL LIGHT IN REACH.
[2022-04-03 05:13] LABS: Hematocrit 38.5 % (37.0-53.0); Hemoglobin 11.8 g/dL (13.5-17.5)
[2022-04-03 05:45] LABS: Albumin, Blood 2.9 g/dL (3.4-5.0); Anion Gap 7 mmol/L (6-16); Blood Urea Nitrogen 40 mg/dL (8-24); Bun/Creatinine Ratio 9.3 (12.0-20.0); CO2, Blood 31 mmol/L (21-32); Calcium, Blood 9.2 mg/dL (8.5-10.1); Chloride, Blood 102 mmol/L (98-108); Creatinine, Blood 4.31 mg/dL (0.60-1.20); Glomerular Filtration Rate 14 (60-); Glucose, Blood 100 mg/dL (70-99); Magnesium, Blood 1.9 mg/dL (1.6-2.4); Phosphorus, Blood 2.9 mg/dL (2.5-4.9); Potassium, Blood 3.7 mmol/L (3.5-5.5); Sodium, Blood 140 mmol/L (136-145)
--- NOTE | 2022-04-03 17:26 | NUR ---
SHIFT SUMMARY PT AWAKE AGAIN AT START OF SHIFT, SITTING UP IN BED WATCHING TV. NO C/O. CONTINUES TO MONITOR HIS ICE CHIPS AND FLUID RESTRICTION. MAURICIO PATENT AND DRAINING CL YELLOW URINE WITH PINK TINGE IN BOTTOM OF BAG. NO DIALYSIS ORDERED FOR TODAY; PT IS SCHEDULED FOR TUESDAY. DR ARREOLA IN TO SEE PT THIS AM A COUPLE OF TIMES. MAURICIO CATH D/C'D PER ORDERS SO PT COULD SELF CATH 24 HRS PRIOR TO D/C TOMORROW. PT VERBALIZED UNDERSTANDING AND NOTIFIED FAMILY TO BRING IN SELF CATH SUPPLIES. WHEN SELF CATH SUPPLIES AVAILABLE TO PT, MAURICIO CATH D/C'D. PT REPORTED USING LIDOCAINE GEL AT HOME FOR CATHETER INSERTION. DR STEINBERG NOTIFIED FOR LIDOCAINE FAMILY DID NOT KNOW TO BRING PT'S IN FROM HOME. PT UP INDEPENDENTLY TO [facility] FOR BM. VISITORS TO TO SEE PT THRU OUT THE DAY. RESTING QUIETLY AT THIS TIME. CALL LT IN REACH.
--- NOTE | 2022-04-04 02:49 | NUR ---
STAFF WOKE UP PT TO SELF-CATH. PT DECLINING LIDOCAINE JELLY ADDED TO THE CATHETER TUBE. PT PRODUCING LIGHT PINK URINE WITH ONE SMALL BLOOD CLOT NOTED X1.
[2022-04-04 04:04] LABS: Hemoglobin 11.4 g/dL (13.5-17.5)
[2022-04-04 04:23] LABS: Albumin, Blood 2.9 g/dL (3.4-5.0); Anion Gap 8 mmol/L (6-16); Blood Urea Nitrogen 49 mg/dL (8-24); CO2, Blood 31 mmol/L (21-32); Calcium, Blood 9.6 mg/dL (8.5-10.1); Chloride, Blood 101 mmol/L (98-108); Creatinine, Blood 4.45 mg/dL (0.60-1.20); Glomerular Filtration Rate 13 (60-); Glucose, Blood 101 mg/dL (70-99); Magnesium, Blood 1.9 mg/dL (1.6-2.4); Phosphorus, Blood 2.9 mg/dL (2.5-4.9); Sodium, Blood 140 mmol/L (136-145)
--- NOTE | 2022-04-04 05:34 | NUR ---
NO ACUTE CHANGES OVERNIGHT. PT SELF-CATHED EVERY 4 HOURS. HE PRODUCED PINK TINGED URINE. NO C/O OF NEW ONSET PAIN. BED IN LOWEST POSITION, CALL LIGHT WITHIN REACH. RN WILL MONITOR AND GIVE REPORT TO ONCOMING NURSE.
[2022-04-04] MEDS ORDERED: BUME2 PO (09:01)
[2022-04-04] MEDS ORDERED: LIDOCAINE EXT (09:42)
[2022-04-04] MEDS ORDERED: OXYB5 PO (09:42)
[2022-04-04] MEDS ORDERED: MIRALAX17 GM PO (09:49)
[2022-04-04] MEDS ORDERED: PANT20 PO (09:49)
[2022-04-04] MEDS ORDERED: TRAM50 PO (09:50)
[2022-04-04] MEDS ORDERED: VISBIOME 112.51 EACH PO (09:50)
--- NOTE | 2022-04-04 16:07 | NUR ---
DISCHARGE SUMMARY: LATE ENTRY FOR 1500: PATIENT WENT TO DIALYSIS THIS MORNING. PATIENT REPORTED FATIGUE POST-DIALYSIS. PATIENT CONTINUES TO HAVE AN EXCELLENT DIET AND BE INDEPENDENT IN THE ROOM. PATIENT IS VERY CAREFUL TO FOLLOW HIS FLUID RESTRICTION. PATIENT READY FOR DISCHARGE. EDUCATION PROVIDED ON MEDICATIONS, FLUID RESTRICTION, FOLLOW UP WITH [facility], AND HOME CARE. PATIENT REPORTED FEELING ANXIOUS ABOUT HIS NEW DIAGNOSIS AND ALL THAT THERE IS TO REMEMBER. PROVIDED ENCOURAGEMENT AND REASSURANCE ABOUT DIALYSIS AND THE DIALYSIS RNS/TECHS THAT WILL BE ABLE TO ALSO HELP HIM. PATIENT REPORTED IMPROVEMENT. DISCHARGE RX SENT TO [facility] PER REQUEST. DISCHARGE INSTRUCTIONS AND EDUCATION PROVIDED TO THE PATIENT. PATIENT DISCHARGED IN WHEELCHAIR. PATIENT PICKED UP BY HIS FATHER. PATIENT STABLE AT TIME OF DISCHARGE.
== END 2022-04-04 15:14 | disposition home or self-care (01) | DRG 683 ==
LOC: ER 09:54 → MEDS 12:56 → PCU 12:56 → MEDS 03-25 11:04
PROVIDERS: Family Medicine; Family Medicine Adult Medicine; Internal Medicine Nephrology; Student in an Organized Health Care Education/Training Program; ADMIT Internal Medicine
PROC: 5A1D70Z Performance of Urinary Filtration, Intermittent, Less than 6 Hours Per Day (ICD-10-PCS; principal; 2022-03-30)
PROC: 02HV33Z Insertion of Infusion Device into Superior Vena Cava, Percutaneous Approach (ICD-10-PCS; principal; 2022-03-30)
DX: N17.0 Acute kidney failure with tubular necrosis (principal); E87.1 Hypo-osmolality and hyponatremia; T83.518A Infection and inflammatory reaction due to other urinary catheter, initial encounter; M62.82 Rhabdomyolysis; E87.20 Acidosis, unspecified; K59.09 Other constipation; G89.29 Other chronic pain; R00.1 Bradycardia, unspecified; N25.81 Secondary hyperparathyroidism of renal origin; N40.1 Benign prostatic hyperplasia with lower urinary tract symptoms; D63.1 Anemia in chronic kidney disease; E11.22 Type 2 diabetes mellitus with diabetic chronic kidney disease; E86.0 Dehydration; N32.89 Other specified disorders of bladder; R31.0 Gross hematuria; R03.0 Elevated blood-pressure reading, without diagnosis of hypertension; N13.6 Pyonephrosis; N18.6 End stage renal disease; E87.5 Hyperkalemia; E11.40 Type 2 diabetes mellitus with diabetic neuropathy, unspecified; E83.51 Hypocalcemia
CPT/HCPCS: 0241U; 36415; 36558; 51702; 71045; 71046; 74176; 76770; 76937; 77001; 78580; 80047; 80048; 80069; 80074; 80076; 81001; 82330; 82533; 82550; 82565; 82570; 82803; 83690; 83735; 83880; 83930; 83935; 84300; 84439; 84443; 84481; 84484; 84550; 85014; 85018; 85025; 85379; 86317; 87077; 87086; 87186; 93005; 93010; 93306; 96361; 96365; 96375; 99152; 99285-25; A9270; A9540; C1750; C1769; C1894; C9113; G0103; J0610; J0696; J0881; J1644; J1956; J2250; J2405; J3010; J7030; J7040; J7050; J7120

== ENCOUNTER 2023-04-12 07:10 | Day surgery (SDC) | payer MEDICARE, OTHER ==
[~2023-04-12] VITALS: Ht 180.3 cm; Wt 71.7 kg
[~2023-04-12 07:10] MED LIST changes: +ALUMINUM H320 MG/5 M PO; +BUME2 PO; +Calcium Acetat667 MG PO; +LIDOCAINE EXT; +LOKELMA10 GM PO; +MIRALAX17 GM PO; +OXYB5 PO; +PANT20 PO; +SODCHL1 PO; +TADALAFIL5 M1 PO; +TRAM50 PO
[2023-04-12 07:45] VITALS: BP 145/79
[2023-04-12 09:27] VITALS: BP 144/78
[2023-04-12 09:30] VITALS: BP 142/72
[2023-04-12 09:45] VITALS: BP 142/80
--- NOTE | 2023-04-12 09:50 | NUR ---
[id number] PATIENT RETURNED FROM THE CATHLAB, PLACED ON THE MONITOR AND CALL LIGHT IN REACH. SBAR RECEIVED FROM CHET DORMAN. VVS. PERMA CATH PLACED TO THE RIGHT IJ AND SITE WITH DRESSING CDI. NO HEMATOMA. ENLARGED AREA OF LIDOCAINE NOTED TO THE SITE ABOVE RIGHT COLLAR BONE. SNAD BAG PLACED OVER THE RIGHT IJ/ COLLAR BONE SITE. COFFEE SERVED. HOB UP. NO PAIN NOTED, EXCEPT TO TOUCH OVER SITE.
--- NOTE | 2023-04-12 09:55 | NUR ---
DR. NEWMAN AT THE BEDSIDE FOR ORDERS AND TO REVIEW SITE.
[2023-04-12 10:00] VITALS: BP 134/79
--- NOTE | 2023-04-12 10:56 | NUR ---
PIV REMOVED. PRESSURE DRESSING APPLIED. CATH TIP INTACT. PATIENT UP TO THE RESTROOM AND THEN BACK TOT HE BEDSIDE AND DRESSED. ALL BELONINGS GATHERED ADN REVEIWED DISCHARGED INSTRUCTIONS. WALKING HOME AND LEAVING CAR HERE. WILL RETURN [place] FOR CAR. [place]ES [place] BLOCK[place] FROM [place] HOSPITAL. DISCHARGED HOME.
== END 2023-04-12 11:33 | disposition home or self-care (01) ==
LOC: MHTC 07:10
DX: T82.49XA Other complication of vascular dialysis catheter, initial encounter (principal); N18.6 End stage renal disease; Z87.891 Personal history of nicotine dependence
CPT/HCPCS: 36581; 37248; 75827; 99152; 99153; A9270; C1725; C1750; C1769; J0690; J1644; J2250; J3010; J7040; Q9967

== ENCOUNTER 2023-05-10 21:31 | Emergency (ER) | payer MEDICARE, OTHER ==
[~2023-05-10] VITALS: Ht 180.3 cm; Wt 69.0 kg
[2023-05-10 21:50] VITALS: BP 164/87
[2023-05-10 22:16] LABS: BASOPHILS ABSOLUTE AUTO 0.06 K/mm3 (0.00-0.23); BASOPHILS PERCENT AUTO 1 % (0-2); EOSINOPHILS PERCENT AUTO 3 % (0-6); Hematocrit 30.9 % (37.0-53.0); Hemoglobin 10.1 g/dL (13.5-17.5); IMMATURE GRAN ABSOLUTE AUTO 0.02 K/mm3 (0.00-0.10); IMMATURE GRAN PERCENT AUTO 0 % (0-1); LYMPHOCYTES ABSOLUTE AUTO 1.13 K/mm3 (0.84-5.20); LYMPHOCYTES PERCENT AUTO 16 % (21-46); MONOCYTES ABSOLUTE AUTO 0.86 K/mm3 (0.16-1.47); MONOCYTES PERCENT AUTO 12 % (4-13); Mean Corpuscular HGB 30.8 pg (26.0-34.0); Mean Corpuscular HGB Conc 32.7 g/dL (31.5-36.5); Mean Corpuscular Volume 94 fL (80-100); Mean Platelet Volume 8.6 fL (9.1-12.4); NEUTROPHILS ABSOLUTE AUTO 4.81 K/mm3 (1.96-9.15); NEUTROPHILS PERCENT AUTO 68 % (41-73); Platelet Count 348 K/mm3 (150-400); RDW Standard Deviation 48.4 fL (35.1-46.3); Red Blood Cell Count 3.28 M/mm3 (4.30-5.90); White Blood Cell Count 7.08 K/mm3 (4.00-11.30)
[2023-05-10 22:46] LABS: Albumin, Blood 3.1 g/dL (3.4-5.0); Albumin/Globulin Ratio 0.6 (0.8-1.8); Bilirubin, Total 0.3 mg/dL (0.1-1.0); Bun/Creatinine Ratio 12.5 (12.0-20.0); Calcium, Blood 9.3 mg/dL (8.5-10.1); Creatinine, Blood 4.96 mg/dL (0.60-1.20); Globulin, Blood 5.1 g/dL (2.2-4.0); Potassium, Blood 4.1 mmol/L (3.5-5.5); Total Protein, Blood 8.2 g/dL (6.4-8.2)
[2023-05-10] MEDS ORDERED: MIDO5 PO (23:33)
== END 2023-05-11 02:03 | disposition home or self-care (01) ==
LOC: ER 21:31
PROVIDERS: Student in an Organized Health Care Education/Training Program
DX: T82.42XA Displacement of vascular dialysis catheter, initial encounter (principal); Z79.899 Other long term (current) drug therapy
CPT/HCPCS: 80053; 85025; 99284

== ENCOUNTER 2023-05-12 07:26 | Day surgery (SDC) | payer MEDICARE, OTHER ==
[~2023-05-12] VITALS: Ht 180.3 cm; Wt 72.0 kg
[2023-05-12] VITALS (8 sets, daily range): BP systolic 121–150; BP diastolic 70–91
[~2023-05-12 07:26] MED LIST changes: +MIDO5 PO
--- NOTE | 2023-05-12 10:31 | NUR ---
PT BACK FROM LAB AT THIS TIME. R IJ TUNNELED DIALYSIS CATHETER PLACE TO RIGHT CHEST WALL. SITE WNL, NO SWELLING AT THIS TIME. GAUZE AND COBAN TO LEFT ARM WHERE FISTULA CREATION ATTEMPT WAS. PT VSS UPON RETURN TO UNIT. ORDERS FOR PT TO BE DCD TO HOME WITH PLANS FOR DIALYSIS THIS PM.
--- NOTE | 2023-05-12 12:07 | NUR ---
DISCHARGE INSTUCTIONS REVIEWED. ATTEMPTED FISTULA ACCESS SITE WNL. PT. DIALYSIS CATH SITE WNL. PT PROVIDED WITH SNACK AND COFFEE. IV REMOVED CATHETER INTACT. TAKEN VIA WHEELCAHIR TO EXIT.
[2023-06-08] MEDS ORDERED: CALCIUM ACETAT667 M2 (16:35)
== END 2023-05-12 12:00 | disposition home or self-care (01) ==
LOC: MHTC 07:26
DX: T82.49XA Other complication of vascular dialysis catheter, initial encounter (principal); I12.9 Hypertensive chronic kidney disease with stage 1 through stage 4 chronic kidney disease, or unspecified chronic kidney disease; N18.6 End stage renal disease; Z87.891 Personal history of nicotine dependence; Z79.899 Other long term (current) drug therapy; Y83.8 Other surgical procedures as the cause of abnormal reaction of the patient, or of later complication, without mention of misadventure at the time of the procedure
CPT/HCPCS: 36558; 36836; 64415; 76937; 77001; 99152; 99153; A9270; C1750; C1769; C1894; J0461; J1644; J2250; J3010; J7030; Q9967

== ENCOUNTER 2023-06-09 07:07 | Day surgery (SDC) | payer MEDICARE, OTHER ==
[~2023-06-09] VITALS: Ht 180.3 cm; Wt 71.8 kg
[~2023-06-09 07:07] MED LIST changes: +CALCIUM ACETAT667 M2
[2023-06-09 07:36] VITALS: BP 137/71
[2023-06-09 10:16] VITALS: BP 154/95
--- NOTE | 2023-06-09 10:17 | NUR ---
PT RETURNED TO RECOVERY ROOM IN BED. PT SITTING UP EATING BREAKFAST AND DRINKING COFFEE. PT DENIES CHEST PAIN. LEFT FOREARM SOFT NON-TENDER WITH NO HEMATOMA, NO BLEEDING.RACW PERM CATH SITCH SITE NO BLEEDING AND INTACT DRESSING.
[2023-06-09 10:30] VITALS: BP 153/88
--- NOTE | 2023-06-09 10:45 | NUR ---
DR NEWMAN SAW PT AND WROTE ORDERS FOR HIM TO BE DISCHARGED.
[2023-06-09 11:05] VITALS: BP 161/95
--- NOTE | 2023-06-09 11:12 | NUR ---
DISCHARGE INSTRUCTIONS REVIEWED ALL QUESTIONS ANSWERED. NO CHANGES TO SITES. 20 G IV DISCONTINUED FROM RIGHT AC WITH INTACT CANNULA. PT ESCORTED OUT VIA WHEELCHAIR.
== END 2023-06-09 11:26 | disposition home or self-care (01) ==
LOC: MHTC 07:07
DX: T82.49XA Other complication of vascular dialysis catheter, initial encounter (principal); I12.0 Hypertensive chronic kidney disease with stage 5 chronic kidney disease or end stage renal disease; N18.6 End stage renal disease; Z87.891 Personal history of nicotine dependence; Z79.899 Other long term (current) drug therapy; Y71.3 Surgical instruments, materials and cardiovascular devices (including sutures) associated with adverse incidents
CPT/HCPCS: 36836; 64415; 76937; 99152; 99153; C1769; C1894; J1644; J2250; J3010; J7030; J7040

== ENCOUNTER 2023-06-30 08:54 | Day surgery (SDC) | payer MEDICARE, OTHER ==
[~2023-06-30] VITALS: Ht 180.3 cm; Wt 72.0 kg
[~2023-06-30 08:54] MED LIST changes: +AZELASTINE137 MCG/06
[2023-06-30 09:23] VITALS: BP 146/81
[2023-06-30 09:30] VITALS: BP 139/83
[2023-06-30 12:45] VITALS: BP 141/82
--- NOTE | 2023-06-30 13:32 | NUR ---
PT UP TO BR AND BACK TO RECLINER. PT STEADY ON HIS FEET. PT EATING LUNCH
[2023-06-30 13:48] VITALS: BP 142/81
[2023-06-30 14:00] VITALS: BP 146/68
== END 2023-06-30 14:30 | disposition home or self-care (01) ==
LOC: MHTC 08:54 → SURS 13:28 → MHTC 13:29
DX: T82.49XA Other complication of vascular dialysis catheter, initial encounter (principal); I12.0 Hypertensive chronic kidney disease with stage 5 chronic kidney disease or end stage renal disease; N18.6 End stage renal disease; Z87.891 Personal history of nicotine dependence; Z79.899 Other long term (current) drug therapy
CPT/HCPCS: 36581; 76937; 99152; 99153; A9270; C1750; C1769; C1894; J1644; J2250; J3010; J7040; J7050

== ENCOUNTER → 2025-06-10 | Outpatient (CLI) | payer MEDICARE, OTHER | LOC: LAB SHORT 15:32 → LAB 15:32 | DX: N18.6 End stage renal disease (principal); E87.5 Hyperkalemia | CPT/HCPCS: 84132 ==